=== PATIENT | male | born 1980 | race Caucasian/White ===

== ENCOUNTER → 2020-04-02 13:04 | Outpatient (BNVA) | payer OTHER, SELFPAY | PROVIDERS: PCP Internal Medicine; Visit Provider Physician Assistant | DX: S39.012A Strain of muscle, fascia and tendon of lower back, initial encounter (principal); X58.XXXA Exposure to other specified factors, initial encounter | CPT/HCPCS: 99202 ==

== ENCOUNTER → 2020-04-05 09:46 | Outpatient (BNVA) | payer OTHER, SELFPAY | PROVIDERS: PCP Internal Medicine; Visit Provider Physician Assistant Medical | DX: S39.012A Strain of muscle, fascia and tendon of lower back, initial encounter (principal); X58.XXXA Exposure to other specified factors, initial encounter | CPT/HCPCS: 99213 ==

== ENCOUNTER → 2020-04-16 10:31 | Outpatient (BNVA) | payer OTHER, SELFPAY | PROVIDERS: PCP Internal Medicine; Visit Provider Physician Assistant | DX: S39.012A Strain of muscle, fascia and tendon of lower back, initial encounter (principal); X58.XXXA Exposure to other specified factors, initial encounter | CPT/HCPCS: 99213 ==

== ENCOUNTER 2020-04-25 16:00 | Outpatient (RCR) | payer OTHER, SELFPAY ==
--- NOTE | 2020-04-10 12:07 | MHC.PT.EP ---
[facility] [place] Office [place] Office [place] Office [address] Debbie Ho [address] [phone] F: [phone] F: [phone] F: [phone] F: [phone] Physical Therapy Plan of Care Date of Evaluation: 04/10/20 Diagnosis: acute lumbar strain Assessment: 40 y/o male referred to PT for acute lumbar strain from work [employer]. He injured himself at work 03/31/2020 when lifting a box ~25#. He felt instant L-sided back pain and was unable to fully stand erect. He stopped working that day and went to work connection Thursday. He was given stretches from [employer] and given Ibuprofen and a muscle relaxer. His pain is gradually improving. He is OOW. Initially he was unable to walk/stand/sit/bend/squat without pain, but now he is able to perform ADL's with less pain, however still limited with forward flexion and feels stiff after prolonded static positions. Examination shows decreased lumbar AROM, decreased glut max strength, increased pain and muscle spasm, and impaired postural awareness. S/s consistent with lumbar derangement with extension-based directional preference. He responded to REIL and educated pt on spine mechanics, body mechanics, posture with lumbar roll, and HEP. Recommend PT 2x/week for 3 weeks to address impairments, implement HEP, and optimize functional mobility. Frequency and Duration: The patient will be seen 2x/week for 3 weeks Short Term Goals: 2 weeks: 1. I with HEP 2. Demonstrate centralization of all sx Shelter Goals: 3 weeks: 1. Improve lumbar extension and flexion to 100% 2. Pt will be able to don/doff shoes with pain < 3/10 3. Pt will be able to lift 25# from floor to waist with pain < 2/10 Treatment Plan: Modalities to reduce pain, spasms and effusion. Manual therapy to restore motion and function. Therapeutic exercise to improve strength and flexibility. Neuromuscular re-education for posture and balance. Therapeutic activities to return to functional activities of daily living. Please sign and return to therapist. Thank you for your referral.
--- NOTE | 2020-06-04 08:26 | MHC.PT.DC ---
[facility] [place] Office [place] Office [place] Office [address] Debbie Ho [address] [phone] F: [phone] F: [phone] F: [phone] F: [phone] Physical Therapy Discharge Report Diagnosis: acute lumbar strain Date of Surgery: Date of Evaluation: 04/10/20 Date of Discharge: 06/04/20 Treatments to Date: 4 Cancellations to Date: 0 No Shows to Date: 0 Discharge Status: Improved Function Independent with HEP Visit Non-compliance Discharge Summary: Pt did not follow with further visits therefore d/c. At time of last attended session, Pt is making good progress and demonstrates full lumbar extension and is now able to don/doff shoes without pain. Added overpressure to REIL and pt reports less pain with overpressure. Cues to perform extension exercises to end-range. Initiated flexion-based exercises to return to flexion and will initiate work simulation next visit if he continues to be painfree. He has a f/u with work connection on Thursday. Electronically signed by: Martha Combs PT DPT Please sign and return to therapist. Thank you for your referral.
== END 2020-06-04 08:27 | disposition other institution (70) ==
LOC: HO.PT 16:00
PROVIDERS: PCP Internal Medicine; Visit Provider Physician Assistant Medical
DX: S39.012D Strain of muscle, fascia and tendon of lower back, subsequent encounter (principal)
CPT/HCPCS: 97110; 97140; 97161

== ENCOUNTER → 2020-04-27 16:03 | Outpatient (BNVA) | payer OTHER, SELFPAY | PROVIDERS: PCP Internal Medicine; Visit Provider Physician Assistant Medical | DX: S39.012D Strain of muscle, fascia and tendon of lower back, subsequent encounter (principal); X58.XXXD Exposure to other specified factors, subsequent encounter | CPT/HCPCS: 99213 ==

== ENCOUNTER → 2020-05-11 15:24 | Outpatient (BNVA) | payer OTHER, SELFPAY | PROVIDERS: PCP Internal Medicine; Visit Provider Physician Assistant Medical | DX: S39.012D Strain of muscle, fascia and tendon of lower back, subsequent encounter (principal); X58.XXXD Exposure to other specified factors, subsequent encounter; M54.16 Radiculopathy, lumbar region | CPT/HCPCS: 99213 ==

== ENCOUNTER → 2020-05-24 09:28 | Outpatient (BNVA) | payer OTHER, SELFPAY | PROVIDERS: PCP Internal Medicine; Visit Provider Physician Assistant Medical | DX: S39.012D Strain of muscle, fascia and tendon of lower back, subsequent encounter (principal); X58.XXXD Exposure to other specified factors, subsequent encounter; M54.16 Radiculopathy, lumbar region; M46.1 Sacroiliitis, not elsewhere classified | CPT/HCPCS: 99213 ==

== ENCOUNTER → 2020-06-06 10:17 | Outpatient (BNVA) | payer OTHER, SELFPAY | PROVIDERS: PCP Internal Medicine; Visit Provider Physician Assistant Medical | DX: S39.012D Strain of muscle, fascia and tendon of lower back, subsequent encounter (principal); X58.XXXD Exposure to other specified factors, subsequent encounter; M54.10 Radiculopathy, site unspecified | CPT/HCPCS: 99213 ==

== ENCOUNTER 2020-06-11 08:40 | Outpatient (REF) | payer OTHER, SELFPAY ==
--- NOTE | 2020-06-11 | MR_ITS ---
EXAMINATION: MR LUMBAR SPINE WITHOUT CONTRAST CLINICAL INFORMATION: Persistent left radicular symptoms with weakness and bilateral extremity weakness, lifting injury. COMPARISON: None TECHNIQUE: MRI of the lumbar spine was obtained using routine sequences without contrast. FINDINGS: There is normal lumbar lordosis. The vertebral heights are normal. There is grade 1 anterolisthesis, L5 over S1. The rest of the alignment is preserved. There is mild loss of L5-S1 disc height with minimal disc desiccation changes. The rest of the disc heights and disc signal are normal. SPINAL LEVELS: The T12-L1, L1-L2 and L2-L3 disc levels are unremarkable. At L3-L4 disc level, there is a central disc bulge indenting the ventral thecal sac resulting in mild AP canal stenosis. The neural foramina are patent bilaterally. At L4-L5 disc level, there is minimal bulge with mild AP canal stenosis. The neural foramina are patent bilaterally. At L5-S1 disc level, there is diffuse bulge eccentric to the left narrowing the left L5 nerve root within the neural foramina and best visualized on axial image 23/6. There an endplate Schmorl's node at L5-S1 disc level. The rest of the bone marrow signal is normal. Conus medullaris terminates at T12-L1 disc level and appears normal in morphology. The paravertebral soft tissues are normal. MR/MR lumbar spine wo con IMPRESSION: 1. Mild central disc bulge L3-L4 and L4-L5 disc levels with mild AP canal stenosis. 2. There is a broad-based diffuse bulge eccentric laterally to the left at L5-S1 disc level moderately narrowing the left neural foramina and mildly flattening the L5 nerve root within the neural foramina.
== END 2020-06-11 08:41 | disposition home or self-care (01) ==
LOC: HO.MRI 08:40
PROVIDERS: Visit Provider Internal Medicine
DX: R53.1 Weakness (principal); M54.16 Radiculopathy, lumbar region
CPT/HCPCS: 72148

== ENCOUNTER → 2020-06-13 10:51 | Outpatient (BNVA) | payer OTHER, SELFPAY | PROVIDERS: PCP Internal Medicine; Visit Provider Physician Assistant Medical | DX: M99.53 Intervertebral disc stenosis of neural canal of lumbar region (principal); G54.4 Lumbosacral root disorders, not elsewhere classified | CPT/HCPCS: 99213 ==

== ENCOUNTER 2020-11-01 20:49 | Inpatient (IN) | payer MEDICAID, SELFPAY ==
--- NOTE | ~2020-11-01 | CT_ITS ---
EXAMINATION: CT ANGIOGRAM OF THE CHEST WITH AND WITHOUT CONTRAST (CT PULMONARY ANGIOGRAM FOR PE) CLINICAL INFORMATION: Reason for Exam hypoxic, elevated dimer COMPARISON: Chest radiograph earlier this evening TECHNIQUE: Prior to contrast administration, noncontrast localization images were obtained. Subsequently, multidetector volumetric imaging was performed from the thoracic inlet to below the diaphragms following the administration of 65 mL Omnipaque 350 intravenous contrast. No contrast reaction reported Sagittal, coronal, and MIP oblique sagittal reformatted images were obtained on the CT workstation, uploaded to PACS, and reviewed. This CT examination was performed using dose optimization techniques as appropriate, variously including the following: *Automated exposure control *Adjustment of mA and/or kV according to patient size (this includes techniques or standardized protocols for targeted exams where dose is matched to indication/reason for exam; i.e. extremities or head) *Use of iterative reconstruction technique Total exam dose-length product 301 mGy-cm FINDINGS: QUALITY OF STUDY/CONTRAST BOLUS: Satisfactory. PULMONARY ARTERIES: No central or segmental pulmonary emboli. THORACIC AORTA: No aneurysm or dissection. LUNG: Some subtle groundglass infiltrates are seen predominantly in a peribronchial distribution. There is some tree-in-bud formation seen at the right lung base along with some more focal small rounded areas of consolidation. At the left lung base, a large area dense consolidation is present. This appears to have increased significantly when compared to the chest radiograph earlier this evening. PLEURA: No pleural effusion or pneumothorax. MEDIASTINUM: Normal heart size. No pericardial effusion. No hilar or mediastinal lymphadenopathy. No evidence of septal bowing or right heart strain. CHEST WALL/AXILLA: No axillary or internal mammary lymphadenopathy. OSSEOUS STRUCTURES: No acute or suspicious osseous abnormality. UPPER ABDOMEN: Cholelithiasis is present. No reflux of contrast into the hepatic veins to suggest elevated right heart pressures. CT/CT angio chest PE protocol IMPRESSION: 1. No evidence of pulmonary emboli 2. Bronchopneumonia with large area of consolidation left lower lobe with smaller areas of peribronchial infiltrate elsewhere as described above. This appears to have increased significantly since the chest radiograph performed earlier in the evening. 3. Incidentally noted cholelithiasis VTE: negative
--- NOTE | ~2020-11-01 | XR_ITS ---
EXAMINATION: XR CHEST CLINICAL INFORMATION: Hypoxia COMPARISON: None TECHNIQUE: Frontal view of the chest was obtained. FINDINGS: The lungs are hypoexpanded with patchy opacity seen in the left lung base and/or lingular suspicious for infiltrate and/or atelectasis. Rest of lungs are clear expanded. The heart size and pulmonary vascularity is normal. No gross bony abnormality seen. XR/XR chest 1V IMPRESSION: Suspect lingular and/or left lung base atelectasis..
[2020-11-01 20:56] VITALS: BMI 26.6
[2020-11-01 21:00] VITALS: BP 118/80; PULSE 115; RESP 16; TEMP 37.1; O2SAT 92
--- NOTE | 2020-11-01 21:47 | ECG_ITS ---
Test Reason : OVEDOSE Blood Pressure : / mmHG Vent. Rate : 119 BPM Atrial Rate : 119 BPM P-R Int : 148 ms QRS Dur : 082 ms QT Int : 316 ms P-R-T Axes : 067 024 025 degrees QTc Int : 444 ms Sinus tachycardia Otherwise normal ECG No previous ECGs available Referred By: Maria Antonia Garcia Electronically Signed By:JUANITA GALARZA MD
--- NOTE | 2020-11-01 21:50 | ED.OVERDOSE ---
HPI - Overdose General Chief Complaint: Overdose Stated Complaint: OD Time Seen by Provider: 11/01/20 21:47 Source: patient and EMS Mode of arrival: EMS Limitations: no limitations History of Present Illness HPI Narrative: Patient comes to emergency room after being found unresponsive by family. Patient overdosed on heroin. Patient states that he had not been using heroin for several weeks, and relapse today, went back to using his regular dose. Patient states it was an accident, denies suicidal or homicidal ideation. Family/EMS gave the patient 8 mg of intranasal Narcan, patient immediately woke up. However, although patient was awake, his oxygen saturation was 85% on room air. Patient placed on a non-rebreather and brought to the emergency room. MD complaint: accidental overdose Related Data Allergies Allergy/AdvReac Type Severity Reaction Status Date / Time No Known Allergies Allergy Unverified 02/09/20 15:36 [No Known Allergies*] Review of Systems Review of Systems: Constitutional : No Weight loss, No Fever, No Chills, No Night Sweats, No Fatigue, No Malaise ENT/Mouth : No Hearing loss, No Ear Pain, No Nasal Congestion, No Sinus Pain, No Hoarseness, No sore throat, No Rhinorrhea, No Swallowing Difficulty Eyes: No Eye Pain, No Swelling, No Redness, No Foreign Body, No Discharge, No Vision Changes Cardiovascular : No Chest Pain, No SOB, No Dyspnea on Exertion, No Orthopnea, No Edema, No Palpitations Respiratory : No Cough, No Sputum, No Wheezing, No Smoke Exposure, No Dyspnea Gastrointestinal : No Nausea, No Vomiting, No Diarrhea, No Constipation, No abdominal Pain, No Hematochezia, No Melena Genitourinary : no irregular bleeding, No Dysuria, No Urinary Frequency, No Hematuria, No Urinary Incontinence, No Urgency, No Flank Pain, No Urinary Flow Changes, No Hesitancy Musculoskeletal : No joint pain, No Myalgias, No Joint Swelling Skin : No Skin Lesions, No rash Neuro : No Weakness, No Numbness, No Paresthesias, No Loss of Consciousness, No Dizziness, No Headache Psych : No Anxiety/Panic, No Depression, No SI/HI/AH/VH, No Social Issues, Heme/Lymph: No Bruising, No Bleeding,No Lymphadenopathy Endocrine : No Polyuria, No Polydipsia, No Temperature Intolerance [facility] Past Medical History Medical History (Updated 11/02/20 @ 02:37 by Maria Antonia Garcia MD) Substance abuse Social History Social History Advance Directives: No Advance Directives Information Provided: Yes Physical Exam Vital Signs: Vital Signs: Last Vital Signs Temp 98.8 F 11/01/20 21:00 Pulse 115 H 11/01/20 21:00 Resp 16 11/01/20 21:00 BP 118/80 11/01/20 21:00 Pulse Ox 92 11/01/20 21:00 Body Mass Index 26.6 Appearance: Alert. Oriented X3. No acute distress. Eyes: Pupils equal, round and reactive to light. ENT: Pharynx normal. Neck: Normal inspection. Neck supple. No lymph nodes noted. No crepitus CVS: Normal heart rate and rhythm. Pulses normal. Normal S1 and S2 Respiratory: No respiratory distress. Breath sounds normal. No Wheezing. No rales , fully awake, oxygen saturation 86% on room air Abdomen: Soft and nontender. No rigidity. No distention. good BS x4 Skin: Skin warm and dry. Normal skin color. Normal skin turgor. Extremities: No lower extremity edema. No lower extremity edema. No Lacerations. No Rash Neuro: Oriented X 3. No motor deficit. No sensory deficit. Moving all extermities. No slurred speech. Course Course Course Narrative: Patient is fully awake, does not have any respiratory distress. His oxygen saturation is 85-86% on room air, patient requiring 6 L of oxygen to keep an O2 of 94% Patient's D-dimer elevated. At this time, I also discussed with the patient that his blood glucose is 500. Patient states that he has never been told that he is diabetic. I discussed the labs imaging with the patient, he states the overdose, patient is new onset diabetic, has acute kidney injury and significant pneumonia. Patient initially wanted to leave against medical advice. After advised the patient to stay, patient grudgingly accepted to stay MDM - Overdose Lab Data Result diagrams: 11/01/20 22:12 11/01/20 22:12 Labs: Lab Results 11/01/20 11/01/20 11/01/20 Range/Units 22:12 22:12 22:12 WBC 12.1 H (4.8-10.8) X10*3/uL RBC 5.28 (4.60-5.80) X10*6/uL Hgb 15.1 (14.0-18.0) g/dl Hct 43.0 (42-52) % MCV 81.4 (80-98) fL MCH 28.6 (27.0-33.0) pg MCHC 35.1 (31.0-36.0) g/dl RDW 11.8 (11.0-16.0) % Plt Count 258 (160-400) X10*3/uL MPV 9.6 (9.4-12.4) fL Immature Gran % (Auto) 0.6 H (0.0-0.4) % Neut % (Auto) 86.2 H (45-73) % Lymph % (Auto) 5.9 L (20-40) % Armstrong % (Auto) 7.0 (2-11) % Eos % (Auto) 0.1 (0-4) % Baso % (Auto) 0.2 (0-2) % Lymph # (Auto) 0.7 L (1.2-4.9) X10*3/uL Armstrong # (Auto) 0.8 (0.1-1.2) X10*3/uL Eos # (Auto) 0.0 (0.0-0.4) X10*3/uL Baso # (Auto) 0.0 (0.0-0.2) X10*3/uL Abs Immat Gran (auto) 0.07 H (0.00-0.03) X10*3/uL Absolute Neuts (auto) 10.4 H (2.0-8.3) X10*3/uL Absolute Nucleated RBC 0.000 (0.0-0.012) X10*3/uL Nucleated RBC % (auto) 0.0 (0.0-0.2) /100WBC D-Dimer 1672 NG/ML Sodium 132 L (135-145) mmol/L Potassium 4.6 (3.3-5.1) mmol/L Chloride 95 L (96-108) mmol/L Carbon Dioxide 29 (22-29) mmol/L Anion Gap 13 (12-20) BUN 20 H (9-16) mg/dL Creatinine 1.48 H (0.5-1.4) mg/dL Estim Creat Clear Calc 67.6 Estimated GFR 53 POC Glucose (60-115) mg/dL Random Glucose 500 H* (60-115) mg/dL Calcium 9.1 (8.4-10.2) mg/dL B-Natriuretic Peptide (<100) pg/mL Acetone, Qual Small H (Negative) 11/01/20 11/01/20 Range/Units 22:12 23:50 WBC (4.8-10.8) X10*3/uL RBC (4.60-5.80) X10*6/uL Hgb (14.0-18.0) g/dl Hct (42-52) % MCV (80-98) fL MCH (27.0-33.0) pg MCHC (31.0-36.0) g/dl RDW (11.0-16.0) % Plt Count (160-400) X10*3/uL MPV (9.4-12.4) fL Immature Gran % (Auto) (0.0-0.4) % Neut % (Auto) (45-73) % Lymph % (Auto) (20-40) % Armstrong % (Auto) (2-11) % Eos % (Auto) (0-4) % Baso % (Auto) (0-2) % Lymph # (Auto) (1.2-4.9) X10*3/uL Armstrong # (Auto) (0.1-1.2) X10*3/uL Eos # (Auto) (0.0-0.4) X10*3/uL Baso # (Auto) (0.0-0.2) X10*3/uL Abs Immat Gran (auto) (0.00-0.03) X10*3/uL Absolute Neuts (auto) (2.0-8.3) X10*3/uL Absolute Nucleated RBC (0.0-0.012) X10*3/uL Nucleated RBC % (auto) (0.0-0.2) /100WBC D-Dimer NG/ML Sodium (135-145) mmol/L Potassium (3.3-5.1) mmol/L Chloride (96-108) mmol/L Carbon Dioxide (22-29) mmol/L Anion Gap (12-20) BUN (9-16) mg/dL Creatinine (0.5-1.4) mg/dL Estim Creat Clear Calc Estimated GFR POC Glucose 325 H (60-115) mg/dL Random Glucose (60-115) mg/dL Calcium (8.4-10.2) mg/dL B-Natriuretic Peptide 13 (<100) pg/mL Acetone, Qual (Negative) Imaging Data CT for PE: Radiologist's impression: QUALITY OF STUDY/CONTRAST BOLUS: Satisfactory. PULMONARY ARTERIES: No central or segmental pulmonary emboli. THORACIC AORTA: No aneurysm or dissection. LUNG: Some subtle groundglass infiltrates are seen predominantly in a peribronchial distribution. There is some tree-in-bud formation seen at the right lung base along with some more focal small rounded areas of consolidation. At the left lung base, a large area dense consolidation is present. This appears to have increased significantly when compared to the chest radiograph earlier this evening. PLEURA: No pleural effusion or pneumothorax. MEDIASTINUM: Normal heart size. No pericardial effusion. No hilar or mediastinal lymphadenopathy. No evidence of septal bowing or right heart strain. CHEST WALL/AXILLA: No axillary or internal mammary lymphadenopathy. OSSEOUS STRUCTURES: No acute or suspicious osseous abnormality. UPPER ABDOMEN: Cholelithiasis is present. No reflux of contrast into the hepatic veins to suggest elevated right heart pressures. CT/CT angio chest PE protocol IMPRESSION: 1. No evidence of pulmonary emboli 2. Bronchopneumonia with large area of consolidation left lower lobe with smaller areas of peribronchial infiltrate elsewhere as described above. This appears to have increased significantly since the chest radiograph performed earlier in the evening. 3. Incidentally noted cholelithiasis VTE: negative ECG Data Attestation: I personally reviewed and interpreted this ECG as follows: (Sinus tachycardia, heart rate 119, no ST segment depression or elevation, no to inversion, QTC 444) Critical Care Time Critical Care Time Total Critical Care Time: 60 Discharge Plan Discharge Clinical Impression: Drug overdose, Diabetes mellitus, new onset, Acute kidney injury, Pneumonia, Hypoxia Patient Disposition: Admitted As Inpatient
[2020-11-01 22:18] LABS: MANUAL DIFF FLAG NO
[2020-11-01 22:19] LABS: Basophils Percent Auto 0.2 % (0-2); Eosinophils Percent Auto 0.1 % (0-4); Hemoglobin 15.1 g/dl (14.0-18.0); Imm Gran Abs Auto 0.07 X10*3/uL (0.00-0.03); Imm Gran Pct Auto 0.6 % (0.0-0.4); Lymphocytes Absolute Auto 0.7 X10*3/uL (1.2-4.9); Lymphocytes Percent Auto 5.9 % (20-40); Mean Corpuscular HGB Conc 35.1 g/dl (31.0-36.0); Mean Corpuscular Hemoglobin 28.6 pg (27.0-33.0); Mean Corpuscular Volume 81.4 fL (80-98); Mean Platelet Volume 9.6 fL (9.4-12.4); Monocytes Absolute Auto 0.8 X10*3/uL (0.1-1.2); Neutrophils Absolute Auto 10.4 X10*3/uL (2.0-8.3); Neutrophils Percent Auto 86.2 % (45-73); Platelet Count 258 X10*3/uL (160-400); Red Blood Count 5.28 X10*6/uL (4.60-5.80); Red Cell Distribution Width 11.8 % (11.0-16.0); White Blood Count 12.1 X10*3/uL (4.8-10.8)
[2020-11-01 22:39] LABS: D Dimer 1672 NG/ML
[2020-11-01 22:57] LABS: B Type Natriuretic Peptide 13 pg/mL (<100)
[2020-11-01 22:59] LABS: Anion Gap 13 (12-20); Blood Urea Nitrogen 20 mg/dL (9-16); Calcium 9.1 mg/dL (8.4-10.2); Carbon Dioxide 29 mmol/L (22-29); Chloride 95 mmol/L (96-108); Creatinine Clr Calc Pharmacy 67.6; Estimated Glomerular Filt Rate 53; Glucose Random 500 mg/dL (60-115); Potassium 4.6 mmol/L (3.3-5.1); Sodium 132 mmol/L (135-145)
[2020-11-01 23:53] LABS: Glucose, Whole Blood 325 mg/dL (60-115)
[2020-11-02 00:18] LABS: Acetone, serum QL Small (Negative)
[2020-11-02] MEDS: iohexoL 350 MG/ML 100 ML INFUS..BTL 65 ML IV (00:23)
[2020-11-02] MEDS: Insulin Regular, Human 100 UNIT/ML 3 ML VIAL 10 UNIT IVPUSH (00:35)
[2020-11-02] MEDS: 0.9 % Sodium Chloride 1,000 ML 999 ML IVCONT ×2 (00:35→04:04)
[2020-11-02 03:17] LABS: Glucose, Whole Blood 301 mg/dL (60-115)
--- NOTE | 2020-11-02 03:21 | P.HPHOSP_ITS ---
History of Present Illness Date of Service: 11/02/20 Chief Complaint: Breif Unresponsive episode 40-year-old male with a past medical history of substance abuse presented to the hospital with a chief complaint of brief unresponsive episode. Patient was found by his family members unresponsive subsequently EMS was called in and brought into the ER for further evaluation. The patient currently denies any chest pain palpitations lightheadedness dizziness. Denies any cough or sputum production. Patient mentioned that he uses illicit drugs, denies IV drug abuse, usually snorts. Denies any back pain. Denies any GI or symptoms. Review of all other systems is negative except mentioned above ER course: Per ER team patient had Narcan given by the EMS with improvement in his mental status. Patient was noted to be mildly hypoxic, CT angio chest showed no evidence of pulmonary embolism but noted left lower lobe pneumonia. Given levofloxacin. Also on the blood work noted to have mild PHILOMENA and elevated blood glucose considering the possible new onset diabetes. IV push. Admitted to the hospital for further management. [facility] Medical History (Updated 11/02/20 @ 02:37 by Maria Antonia Garcia MD) Substance abuse Social History Household Members: Family Housing: House Do you presently have visiting nurse or other home services: No Patient Tobacco Use Status: Current everyday Tobacco user Tobacco use type: Cigarette Cigarettes Per Day: 10 Years Smoked: 10 Smoked in Last 30 Days: Yes Patient Interested in Nicotine Replacement: No (not at this time per patient) Patient Given Instructions on How to Stop Smoking: No (not interested at this t nissa) Second Hand Smoke Exposure: Yes Use of substances other than those prescribed or required for medical reasons: Yes Substance Use Type: Heroin Substance Use Frequency: Occasionally Last Used Substance: Just Prior to Admission Currently Displaying Signs/Symptoms of Drug Intoxication Withdrawal: No Any prior treatment program specific to substance use: Yes Have you been hit, kicked, punched, or otherwise hurt by someone within the past year? If so, by whom?: No Do you feel safe in your current relationship?: Yes Is there a partner from a previous relationship who is making you feel unsafe now?: No Are you made to feel afraid or neglected: No Spiritual Healthcare Practices: nothing per patient Confucianist Healthcare Practices: none Cultural Healthcare Practices: none Advance Directives: No Advance Directives Information Provided: Yes Do you have thoughts of harming others: None Do you have a plan to hurt others: No Plan Recently lost weight without trying: No Nutrition Risks: No Nutritional Risk Poor oral hygiene: No service: No Current occupational status: unemployed Meds Allergies Allergy/AdvReac Type Severity Reaction Status Date / Time No Known Allergies Allergy Verified 11/02/20 13:05 [No Known Allergies*] Active Medications: Current Medications Generic Name Dose Route Start Last Admin Trade Name Freq PRN Reason Stop Dose Admin Acetaminophen 650 mg 11/02/20 03:15 Acetaminophen 325 Mg Tablet PO Q6H PRN Pain, Mild (Pain Scale 1-3) Albuterol/Ipratropium 3 ml 11/02/20 03:14 Albuterol/Iprat 2.5/0.5mg 3 Ml Ampul.Neb INHALE RQ4H PRN Shortness of Breath/Wheezing Benzonatate 100 mg 11/02/20 03:14 Benzonatate 100 Mg Capsule PO TID PRN Cough Enoxaparin Sodium 40 mg 11/02/20 03:15 Enoxaparin Sodium 40 Mg/0.4 Ml Syringe SUBCUT Q24H [facility] Sodium Chloride 1,000 mls @ 100 mls/hr 11/02/20 03:15 Ns IVCONT .Q10H [facility] Insulin Glargine 10 unit 11/02/20 21:00 Insulin Glargine,Hum.Rec.Anlog 100 Unit/Ml 10 Ml Vial SUBCUT BEDTIME [facility] Insulin Human Lispro 0 unit 11/02/20 07:30 Insulin Lispro 100 Unit/Ml 3 Ml Vial SUBCUT QIDACHS [facility] Protocol Insulin Human Lispro 0 unit 11/02/20 07:30 Insulin Lispro 100 Unit/Ml 3 Ml Vial SUBCUT QIDAS [facility] Protocol Levofloxacin 750 mg 11/02/20 03:15 Levofloxacin 750 Mg Tablet PO Q24H [facility] Senna 17.2 mg 11/02/20 03:15 Sennosides 8.6 Mg Tablet PO BEDTIME PRN Constipation Sodium Chloride 3 ml 11/02/20 08:00 0.9 % Sodium Chloride Flush 3 Ml Syringe IVFLUSH QSHIFT [facility] Physical Exam Vital Signs and Narrative: Vital Signs: Last Vital Signs Temp 98.8 F 11/01/20 21:00 Pulse 115 H 11/01/20 21:00 Resp 16 11/01/20 21:00 BP 118/80 11/01/20 21:00 Pulse Ox 92 11/01/20 21:00 Body Mass Index 26.6 Gen: Appears be in no acute distress HEENT: NCAT, Moist mucosa. Pulmonary: Course breath sounds, fair air entry CVS: Normal S1-S2 Abdomen: BS+, Soft, Nontender Extremities: Warm well perfused Neuro: Alert and awake. Oriented x3. Grossly nonfocal exam. Results Labs CBC and Chem 7: 11/04/20 08:18 11/04/20 08:18 Labs: Laboratory Results - last 24 hr 11/01/20 11/01/20 11/01/20 22:12 22:12 22:12 MCV 81.4 MCH 28.6 MCHC 35.1 RDW 11.8 Plt Count 258 MPV 9.6 Immature Gran % (Auto) 0.6 H Neut % (Auto) 86.2 H Lymph % (Auto) 5.9 L Wirt % (Auto) 7.0 Eos % (Auto) 0.1 Baso % (Auto) 0.2 Lymph # (Auto) 0.7 L Wirt # (Auto) 0.8 Eos # (Auto) 0.0 Baso # (Auto) 0.0 Abs Immat Gran (auto) 0.07 H Absolute Neuts (auto) 10.4 H Absolute Nucleated RBC 0.000 Nucleated RBC % (auto) 0.0 D-Dimer 1672 Anion Gap 13 Estim Creat Clear Calc 67.6 Estimated GFR 53 POC Glucose Random Glucose 500 H* Calcium 9.1 B-Natriuretic Peptide Acetone, Qual Small H 11/01/20 11/01/20 11/02/20 22:12 23:50 03:14 MCV MCH MCHC RDW Plt Count MPV Immature Gran % (Auto) Neut % (Auto) Lymph % (Auto) Wirt % (Auto) Eos % (Auto) Baso % (Auto) Lymph # (Auto) Wirt # (Auto) Eos # (Auto) Baso # (Auto) Abs Immat Gran (auto) Absolute Neuts (auto) Absolute Nucleated RBC Nucleated RBC % (auto) D-Dimer Anion Gap Estim Creat Clear Calc Estimated GFR POC Glucose 325 H 301 H Random Glucose Calcium B-Natriuretic Peptide 13 Acetone, Qual Imaging Radiologist's Impressions: Impressions Chest X-Ray 11/01/20 21:48 IMPRESSION: Suspect lingular and/or left lung base atelectasis.. Chest CTA 11/02/20 00:02 IMPRESSION: 1. No evidence of pulmonary emboli 2. Bronchopneumonia with large area of consolidation left lower lobe with smaller areas of peribronchial infiltrate elsewhere as described above. This appears to have increased significantly since the chest radiograph performed earlier in the evening. 3. Incidentally noted cholelithiasis VTE: negative Assessment and Plan (1) Drug overdose: Status: Acute 40-year-old male with a past medical history of substance abuse presented to the hospital after a brief unresponsive episode at home. Brief unresponsive episode: In the setting of drug overdose. Improved after Narcan. Currently mentating well. Supportive care. Substance abuse: Consulted Addiction Medicine for further input. Left lower lobe pneumonia: Continue levofloxacin. COVID-19 pending. Mathew Eastman p.r.n.. [place] p.r.n.. Supplemental oxygen p.r.n.. CT scan showed no evidence of pulmonary embolism. Cholelithiasis: Recommended outpatient follow-up with General surgery. Currently denies any abdominal complaints. New onset diabetes: Patient fingerstick glucose was in 500s. Given regular insulin IV push in the ER. Improving. Will keep the patient on Lantus plus insulin sliding scale. Will obtain hemoglobin A1c. PHILOMENA: Likely prerenal. Avoid nephrotoxins. Gentle IV fluids. DVT prophylaxis: Lovenox Code status: Full code
[2020-11-02] MEDS: 0.9 % Sodium Chloride 1,000 ML 100 ML IVCONT ×2 (04:04→14:00)
[2020-11-02 04:11] VITALS: BP 113/54; PULSE 99; RESP 14; TEMP 37.8; O2SAT 95
[2020-11-02] MEDS: levoFLOXacin 500 MG TABLET PO (04:26)
[2020-11-02] MEDS: Enoxaparin Sodium 40 MG/0.4 ML SYRINGE SUBCUT (04:26)
[2020-11-02 04:27] LABS: MANUAL DIFF FLAG NO
[2020-11-02] MEDS: Acetaminophen 325 MG TABLET 650 MG PO (04:28)
[2020-11-02 04:29] LABS: Basophils Percent Auto 0.1 % (0-2); Eosinophils Percent Auto 0.2 % (0-4); Hematocrit 39.7 % (42-52); Hemoglobin 13.9 g/dl (14.0-18.0); Imm Gran Abs Auto 0.04 X10*3/uL (0.00-0.03); Imm Gran Pct Auto 0.4 % (0.0-0.4); Lymphocytes Absolute Auto 1.5 X10*3/uL (1.2-4.9); Lymphocytes Percent Auto 13.5 % (20-40); Mean Corpuscular Hemoglobin 28.7 pg (27.0-33.0); Mean Platelet Volume 9.5 fL (9.4-12.4); Monocytes Absolute Auto 0.7 X10*3/uL (0.1-1.2); Monocytes Percent Auto 6.4 % (2-11); Neutrophils Absolute Auto 8.8 X10*3/uL (2.0-8.3); Neutrophils Percent Auto 79.4 % (45-73); Platelet Count 200 X10*3/uL (160-400); Red Blood Count 4.84 X10*6/uL (4.60-5.80); Red Cell Distribution Width 11.9 % (11.0-16.0)
--- NOTE | 2020-11-02 04:32 | PC.NURSE ---
Phleb at bedside prior to this coal pipeline operator, shane blood. This RN believed phleb collected all labs including blood cultures as ordered. This RN was verifying chart to ensure no additional orders were needed before leaving bedside and saw that cultures were not received in lab. Phleb still in dept. This RN asked phleb if she had drawn cultures, states she did not see any orders for cultures. This RN amended BC x 2 in worklist to attempt to allow phleb to see order. Phleb to draw cultures at this time.
[2020-11-02 04:39] LABS: COVID-19 Test Negative (Negative)
[2020-11-02 04:57] LABS: Lactic Acid 0.9 mmol/L (0.5-2.0)
[2020-11-02 05:03] LABS: Anion Gap 10 (12-20); Blood Urea Nitrogen 15 mg/dL (9-16); Calcium 8.2 mg/dL (8.4-10.2); Carbon Dioxide 27 mmol/L (22-29); Chloride 101 mmol/L (96-108); Creatinine Clr Calc Pharmacy 103.2; Estimated Glomerular Filt Rate > 60; Glucose Random 281 mg/dL (60-115); Potassium 3.7 mmol/L (3.3-5.1); Sodium 134 mmol/L (135-145)
[2020-11-02 08:15] LABS: Glucose, Whole Blood 226 mg/dL (60-115)
[2020-11-02 08:23] LABS: Estimated Average Glucose 292 mg/dL; Hemoglobin A1c % 11.8 %
--- NOTE | 2020-11-02 09:51 | MHC.RECOVSUP ---
Recovery Support note: Patient is a 40 year old Iraqi speaking male who presented [place] [facility] due to an accidental heroin overdose. Patient is currently in the ED awaiting a medical admission. This sign writer letterer or painter met with patient to discuss substance use and recovery supports. Patient had a cloth over his eyes and appeared to be sleeping however woke up when this sign writer letterer or painter said his name. Patient reports he is doing OK and is not interested at this time. 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 Patient reports he is not sure if he was unresponsive due to the heroin or his blood sugar. Patient reports he is ready to get back into recovery. Patient is open to this sign writer letterer or painter following up with him later on in his admission to further discuss recovery supports and treatment options.
[2020-11-02 13:03] VITALS: BP 129/73; PULSE 89; RESP 16; TEMP 36.3; O2SAT 97
[2020-11-02 13:08] VITALS: BMI 23.4
--- NOTE | 2020-11-02 13:26 | MHC.CM.PN ---
FRANCISCO CALLED [facility] ([phone]) AND WAS INFORMED THE PT IS CURRENTLY ACTIVE WITH [facility] FOR PRIMARY CARE HOWEVER HE HAS NOT BEEN SEEN FOR SOME TIME AND WILL BE DISCHARGED IF HE DOES NOT SEE HER PRIOR TO DECEMBER OF THIS YEAR. FRANCISCO ATTEMPTED TO MAKE AN APPOINTMENT FOR PT HOWEVER THEY DID NOT HAVE ANY AVAILABLE. PER [facility] ELECTRICIAN APPRENTICE, DR CANALES NURSE WILL CALL TO DISCUSS CONCERNS AND TRY TO SCHEDULE AN APPOINTMENT OTHERWISE PT SHOULD CALL THEM ON THURSDAY TO SCHEDULE SOMETHING IN DECEMBER THE SCHEDULE FOR THAT MONTH WILL BE OPEN THEN.
[2020-11-02 13:27] LABS: Glucose, Whole Blood 263 mg/dL (60-115)
[2020-11-02 14:05] VITALS: O2SAT 96
[2020-11-02 15:18] VITALS: BP 125/67; PULSE 84; RESP 20; TEMP 36.9; O2SAT 92
--- NOTE | 2020-11-02 16:07 | P.PNIM_ITS ---
Subjective Subjective Date of Service: 11/02/20 <DAVID Mancini - Last Filed: 11/02/20 16:21> 11/02/20 <Nikolas Wrigth MD - Last Filed: 11/02/20 17:29> Interval History: seen and examined this morning, follow up for heroin overdose, pneumonia and new onset diabetes denies shortness of breath or cough at this time. denies fever, chills <DAVID Mancini - Last Filed: 11/02/20 16:21> Review of Systems Review of Systems: Yes all other systems are reviewed and are negative <DAVID Mancini - Last Filed: 11/02/20 16:21> Constitutional Constitutional: Denies chills and Denies fever(s) <DAVID Mancini - Last Filed: 11/02/20 16:21> Cardiovascular Cardiovascular: Denies chest pain <DAVID Mancini Last Filed: 11/02/20 16:21> Respiratory Respiratory: Denies cough <DAVID Mancini - Last Filed: 11/02/20 16:21> Gastrointestinal Gastrointestinal: Denies abdominal pain <DAVID Mancini Last Filed: 11/02/20 16:21> Physical Exam Vital Signs: Vital Signs: Last Vital Signs Temp 98.4 F 11/02/20 15:18 Pulse 84 11/02/20 15:18 Resp 20 11/02/20 15:18 BP 125/67 11/02/20 15:18 Pulse Ox 92 11/02/20 15:18 Body Mass Index 23.4 <DAVID Mancini - Last Filed: 11/02/20 16:21> Const: General: comfortable, alert and awake <DAVID Mancini Last Filed: 11/02/20 16:21> Nutritional Appearance: well nourished <DAVID Mancini Last Filed: 11/02/20 16:21> Orientation/consciousness: patient oriented x3 <DAVID Mancini Last Filed: 11/02/20 16:21> HENMT: Head: Yes normocephalic and Yes atraumatic <DAVID Mancini - Last Filed: 11/02/20 16:21> Eyes: Sclerae: sclerae normal <DAVID Mancini - Last Filed: 11/02/20 16:21> Chest: Chest palpation & inspection: normal inspection of the chest <DAVID Long - Last Filed: 11/02/20 16:21> Resp: Effort & Inspection: normal respiratory effort and no respiratory distress <DAVID Mancini - Last Filed: 11/02/20 16:21> Auscultation: clear to auscultation bilaterally <DAVID Mancini - Last Filed: 11/02/20 16:21> Cardio: Rate: regular rate <DAVID Mancini - Last Filed: 11/02/20 16:21> Rhythm: regular rhythm <DAVID Mancini - Last Filed: 11/02/20 16:21> GI: Palpation (GI): Soft to palpation and nontender <DAVID Mancini - Last Filed: 11/02/20 16:21> Neuro: General: patient oriented x3 <DAVID Mancini - Last Filed: 11/02/20 16:21> Cranial nerves: Yes CN's II-XII intact bilaterally and Yes Bilaterally intact EOM present <DAVID Mancini - Last Filed: 11/02/20 16:21> Objective Data Current Medications Generic Name Dose Route Start Last Admin Trade Name Freq PRN Reason Stop Dose Admin Acetaminophen 650 mg 11/02/20 03:15 11/02/20 04:28 Acetaminophen 325 Mg Tablet PO 650 mg Q6H PRN Administration Pain, Mild (Pain Scale 1-3) Albuterol/Ipratropium 3 ml 11/02/20 03:14 Albuterol/Iprat 2.5/0.5mg 3 Ml Ampul.Neb INHALE RQ4H PRN Shortness of Breath/Wheezing Benzonatate 100 mg 11/02/20 03:14 Benzonatate 100 Mg Capsule PO TID PRN Cough Enoxaparin Sodium 40 mg 11/02/20 05:00 11/02/20 04:26 Enoxaparin Sodium 40 Mg/0.4 Ml Syringe SUBCUT 40 mg Q24H [facility] Administration Sodium Chloride 1,000 mls @ 100 mls/hr 11/02/20 03:15 11/02/20 14:00 Ns IVCONT 100 mls/hr .Q10H [facility] Administration Insulin Glargine 10 unit 11/02/20 21:00 Insulin Glargine,Hum.Rec.Anlog 100 Unit/Ml 10 Ml Vial SUBCUT BEDTIME [facility] Insulin Human Lispro 0 unit 11/02/20 07:30 11/02/20 14:48 Insulin Lispro 100 Unit/Ml 3 Ml Vial SUBCUT Not Given QIDACHS [facility] Protocol Levofloxacin 750 mg 11/03/20 06:00 Levofloxacin 750 Mg Tablet PO Q24H [facility] Senna 17.2 mg 11/02/20 03:15 Sennosides 8.6 Mg Tablet PO BEDTIME PRN Constipation Sodium Chloride 3 ml 11/02/20 08:00 11/02/20 14:48 0.9 % Sodium Chloride Flush 3 Ml Syringe IVFLUSH Not Given QSHIFT [facility] <DAVID Mancini - Last Filed: 11/02/20 16:21> Labs CBC & Chem 7: : 11/02/20 04:21 11/02/20 04:21 <DAVID Mancini - Last Filed: 11/02/20 16:21> Assessment and Plan (1) Drug overdose: Status: Acute <DAVID Mancini - Last Filed: 11/02/20 16:21> (2) Diabetes mellitus, new onset: Status: Acute <DAVID Mancini - Last Filed: 11/02/20 16:21> Assessment and Plan: I saw patient and discussed finding, plana and management with DAVID and I agree with above, except as otherwise stated <Nikolas Wright MD - Last Filed: 11/02/20 17:29> (3) Acute kidney injury: Status: Acute <DAVID Mancini - Last Filed: 11/02/20 16:21> (4) Pneumonia: Status: Acute <DAVID Mancini - Last Filed: 11/02/20 16:21> Assessment and Plan: This is a 40-year-old male with a past medical history of substance abuse presented to the hospital after heroin overdose found to have pneumonia and elevated blood sugar concerning for new onset diabetes Pneumonia In the setting of drug overdose/episode of unresponsiveness Did meet sepsis on arrival with wbc 12.1 and tachycardia. no severe features noted. LA wnl. low grade fever this am. covid negative -continue IV levaquin -continue supportive care, not currently requiring oxygen -blood cultures pending New onset diabetes: Random glucose 500s. HbA1c 11.8 -started on low dose Lantus, titrate as needed -continue SSI, POCs -diabetic education Substance abuse: no active withdrawal at this time; pt reports relapsing but was previously clean for a long time -Addiction Medicine consulted PHILOMENA Resolved with IVF Cholelithiasis: Seen incidentally on CTA. No abdominal complaints DVT prophylaxis: Lovenox Code status: Full code Attending: Dr. Wright <DAVID Mancini - Last Filed: 11/02/20 16:21>
[2020-11-02 16:11] LABS: Glucose, Whole Blood 280 mg/dL (60-115)
[2020-11-02] MEDS: Insulin Lispro 100 UNIT/ML 3 ML VIAL SUBCUT ×2 (16:17→20:58)
[2020-11-02 18:59] VITALS: BP 121/65; PULSE 115; RESP 20; TEMP 36.4; O2SAT 91
[2020-11-02 20:17] LABS: Glucose, Whole Blood 247 mg/dL (60-115)
[2020-11-02] MEDS: Insulin Glargine,Hum.rec.anlog 100 UNIT/ML 10 ML VIAL 10 UNIT SUBCUT (20:58)
[2020-11-02 23:31] VITALS: BP 125/60; PULSE 113; RESP 18; TEMP 36.8; O2SAT 92
[2020-11-02] MEDS: 0.9 % Sodium Chloride Flush 3 ML SYRINGE IVFLUSH (23:58)
[2020-11-03 03:38] VITALS: BP 132/79; PULSE 111; RESP 18; TEMP 37; O2SAT 90
[2020-11-03] MEDS: Enoxaparin Sodium 40 MG/0.4 ML SYRINGE SUBCUT (05:26)
[2020-11-03] MEDS: levoFLOXacin 750 MG TABLET PO (05:26)
[2020-11-03 07:01] LABS: Hemoglobin 14.1 g/dl (14.0-18.0); Mean Corpuscular HGB Conc 34.4 g/dl (31.0-36.0); Mean Corpuscular Hemoglobin 28.6 pg (27.0-33.0); Mean Corpuscular Volume 83.2 fL (80-98); Platelet Count 223 X10*3/uL (160-400); Red Blood Count 4.93 X10*6/uL (4.60-5.80); Red Cell Distribution Width 12.1 % (11.0-16.0); White Blood Count 14.6 X10*3/uL (4.8-10.8)
[2020-11-03 07:17] LABS: Glucose, Whole Blood 155 mg/dL (60-115)
[2020-11-03] MEDS: Insulin Lispro 100 UNIT/ML 3 ML VIAL SUBCUT ×4 (07:42→21:40)
[2020-11-03] MEDS: 0.9 % Sodium Chloride Flush 3 ML SYRINGE IVFLUSH ×3 (07:43→21:41)
[2020-11-03 08:00] VITALS: BP 130/74; PULSE 88; RESP 16; TEMP 36.6; O2SAT 96
--- NOTE | 2020-11-03 10:14 | MHC.CM.PN ---
CM MET WITH PT WHO REPORTS HE LIVES WITH HIS GF AND IS INDEPENDENT WITH CARE AND MOBILITY. PT DENIES THE USE OF DME OR IN HOME SERVICES. CM VERIFIED PCP [facility] AT [facility], HOWEVER, PT WILL ONLY BE ACTIVE UNTIL DECEMBER UNLESS HE ATTENDS AN APPOINTMENT BEFORE THEN. THE ABOVE INFORMATION WAS CONVEYED TO PT WELL EDUCATION ON THE IMPORTANCE OF FOLLOWING UP AND MAINTAINING A PCP. PT DID NOT HAVE A HCP HOWEVER DID COMPLETE ONE TODAY NAMING HIS MOTHER, SD MELENDEZ, HIS AGENT. PT DOES NOT HAVE HER ADDRESS OR PHONE NUMBER BUT WILL ADD THE INFO TO THE DOCUMENT POST DC. CURRENT DC PLAN IS HOME WITH NO SERVICES PT WILL SELF ARRANGE TRANSPORTATION
--- NOTE | 2020-11-03 10:27 | HO.PM.IMPN ---
Subjective Subjective Date of Service: 11/03/20 <Reina Waldrop NP - Last Filed: 11/03/20 10:33> 11/03/20 <Nikolas Wright MD - Last Filed: 11/03/20 18:53> Interval History: Follow-up aspiration pneumonia No trouble breathing Feels very tired <Reina Waldrop NP - Last Filed: 11/03/20 10:33> Physical Exam Vital Signs: Vital Signs: Last Vital Signs Temp 98 F 11/03/20 08:00 Pulse 88 11/03/20 08:00 Resp 16 11/03/20 08:00 BP 130/74 11/03/20 08:00 Pulse Ox 96 11/03/20 08:00 Body Mass Index 23.4 <Reina Waldrop NP - Last Filed: 11/03/20 10:33> Appearing in no acute distress lung sounds are clear to auscultation heart regular rate rhythm, clear S1, S2 positive bowel sounds, abdomen is soft, nontender neuro patient is alert x3, no focal deficits <Reina Waldrop NP - Last Filed: 11/03/20 10:33> Objective Data Current Medications Generic Name Dose Route Start Last Admin Trade Name Freq PRN Reason Stop Dose Admin Acetaminophen 650 mg 11/02/20 03:15 11/02/20 04:28 Acetaminophen 325 Mg Tablet PO 650 mg Q6H PRN Administration Pain, Mild (Pain Scale 1-3) Albuterol/Ipratropium 3 ml 11/02/20 03:14 Albuterol/Iprat 2.5/0.5mg 3 Ml Ampul.Neb INHALE RQ4H PRN Shortness of Breath/Wheezing Benzonatate 100 mg 11/02/20 03:14 Benzonatate 100 Mg Capsule PO TID PRN Cough Enoxaparin Sodium 40 mg 11/02/20 05:00 11/03/20 05:26 Enoxaparin Sodium 40 Mg/0.4 Ml Syringe SUBCUT 40 mg Q24H [facility] Administration Insulin Glargine 10 unit 11/02/20 21:00 11/02/20 20:58 Insulin Glargine,Hum.Rec.Anlog 100 Unit/Ml 10 Ml Vial SUBCUT 10 unit BEDTIME [facility] Administration Insulin Human Lispro 0 unit 11/02/20 07:30 11/03/20 07:42 Insulin Lispro 100 Unit/Ml 3 Ml Vial SUBCUT 2 unit QIDACHS [facility] Administration Protocol Levofloxacin 750 mg 11/03/20 06:00 11/03/20 05:26 Levofloxacin 750 Mg Tablet PO 750 mg Q24H [facility] Administration Senna 17.2 mg 11/02/20 03:15 Sennosides 8.6 Mg Tablet PO BEDTIME PRN Constipation Sodium Chloride 3 ml 11/02/20 08:00 11/03/20 07:43 0.9 % Sodium Chloride Flush 3 Ml Syringe IVFLUSH 3 ml QSHIFT [facility] Administration <Reina Waldrop NP - Last Filed: 11/03/20 10:33> Labs CBC & Chem 7: : 11/03/20 05:25 11/02/20 04:21 <Reina Waldrop NP - Last Filed: 11/03/20 10:33> Microbiology Microbiology Results: Microbiology 11/02/20 04:41 Blood - Venous Blood Culture - Preliminary No growth after 24 hours. 11/02/20 04:41 Blood - Venous Blood Culture - Preliminary No growth after 24 hours. <Reina Waldrop NP - Last Filed: 11/03/20 10:33> Assessment and Plan (1) Drug overdose: Status: Acute <Reina Waldrop NP - Last Filed: 11/03/20 10:33> Assessment and Plan: This is a 40-year-old male with a past medical history of substance abuse presented to the hospital after heroin overdose found to have pneumonia and elevated blood sugar concerning for new onset diabetes CAP vs aspiration pna In the setting of drug overdose/episode of unresponsiveness Did meet sepsis on arrival with wbc 12.1 and tachycardia. no severe features noted. LA wnl. low grade fever this am. covid negative -continue IV levaquin -continue supportive care, not currently requiring oxygen -blood cultures pending New onset diabetes Random glucose 500s. HbA1c 11.8 -start on Metformin 500mg BID tomorrow for home -started on low dose Lantus, titrate as needed -continue SSI, POCs -diabetic education Substance abuse no active withdrawal at this time; pt reports relapsing but was previously clean for a long time -Addiction Medicine consulted PHILOMENA Resolved with IVF Cholelithiasis Seen incidentally on CTA. No abdominal complaints DVT prophylaxis: Lovenox Code status: Full code Attending: Dr. Wright <Reina Waldrop NP - Last Filed: 11/03/20 10:33> (2) Pneumonia: Status: Acute <Reina Waldrop NP - Last Filed: 11/03/20 10:33> Assessment and Plan: I saw and examined the patient and discussed findings, mangement, and disposition with PA and I agree with the above, except if otherwise stated. check WBC tomorrow <Nikolas Wright MD - Last Filed: 11/03/20 18:53>
--- NOTE | 2020-11-03 11:32 | MHC.RECOVSUP ---
Recovery Support note: This telegraphic typewriter operator chief followed up with patient on the medical floor to discuss his relapse and recovery support options. Patient reports no withdrawal symptoms at this time. Patient continues to report that he had abstained from drugs for several weeks and relapsed yesterday, resulting in an overdose. This telegraphic typewriter operator chief offered patient the opportunity to discuss the events that lead up to his relapse and what he was doing during the period of sobriety prior and patient declined, stating that he does not want to talk about it at all. Discussed harm reduction with patient including, focusing on tolerance and how a relapse can result in an overdose because the body does not have the same tolerance to the drug as it did before the period of sobriety. Patient acknowledged. This telegraphic typewriter operator chief offered patient information on recovery support options and referrals to therapy and a Immunology Teacher and patient declined. Encouraged patient to reach out to his RN if he changes his mind and is interested in talking about his relapse or if he is interested in resources. Patient acknowledged. Discussed case with patient's RN and Patricia Rasheed NP.
[2020-11-03 11:45] LABS: Glucose, Whole Blood 211 mg/dL (60-115)
[2020-11-03 12:00] VITALS: BP 119/71; PULSE 82; RESP 16; TEMP 36.1; O2SAT 96
[2020-11-03 15:05] VITALS: BP 120/72; PULSE 80; RESP 17; TEMP 36.1; O2SAT 96
[2020-11-03 16:30] LABS: Glucose, Whole Blood 182 mg/dL (60-115)
[2020-11-03 19:08] VITALS: BP 136/78; PULSE 91; RESP 17; TEMP 36.1; O2SAT 95
[2020-11-03 20:23] LABS: Glucose, Whole Blood 229 mg/dL (60-115)
[2020-11-03] MEDS: Insulin Glargine,Hum.rec.anlog 100 UNIT/ML 10 ML VIAL 10 UNIT SUBCUT (21:40)
[2020-11-03 23:02] VITALS: BP 131/78; PULSE 119; RESP 18; TEMP 36.7; O2SAT 95
[2020-11-04 03:39] VITALS: BP 136/80; PULSE 80; RESP 18; TEMP 36.7; O2SAT 96
[2020-11-04] MEDS: levoFLOXacin 750 MG TABLET PO (05:44)
[2020-11-04] MEDS: Enoxaparin Sodium 40 MG/0.4 ML SYRINGE SUBCUT (05:45)
[2020-11-04 07:46] LABS: Glucose, Whole Blood 267 mg/dL (60-115)
[2020-11-04 08:00] VITALS: BP 130/71; PULSE 78; RESP 20; TEMP 36.2; O2SAT 98
[2020-11-04] MEDS: Insulin Lispro 100 UNIT/ML 3 ML VIAL SUBCUT ×2 (08:16→11:53)
[2020-11-04] MEDS: 0.9 % Sodium Chloride Flush 3 ML SYRINGE IVFLUSH (08:17)
--- NOTE | 2020-11-04 08:52 | P.DS_ITS ---
DS: Providers Provider Date of Service: 11/04/20 <Reina Waldrop NP - Last Filed: 11/04/20 11:00> Date of admission: 11/02/20 03:15 <Reina Waldrop NP - Last Filed: 11/04/20 11:00> Date of discharge: 11/04/20 <Reina Waldrop NP - Last Filed: 11/04/20 11:00> Primary care physician: [facility] <Reina Waldrop NP - Last Filed: 11/04/20 11:00> Admitting clinician: Herbert Adler <Reina Waldrop NP - Last Filed: 11/04/20 11:00> Attending physician on admission: Herbert Adler <Reina Waldrop NP - Last Filed: 11/04/20 11:00> Consults: 11/02/20 03:13 Addiction Medicine Routine Consulting Provider: Patricia Rasheed Reason for consultation: opiate abuse <Reina Waldrop NP - Last Filed: 11/04/20 11:00> Attending physician on discharge: Nikolas Wrgiht <Reina Waldrop NP - Last Filed: 11/04/20 11:00> Discharging clinician: Reina Waldrop <Reina Waldrop NP - Last Filed: 11/04/20 11:00> DS: Diagnosis Discharge Diagnosis (1) Diabetes mellitus, new onset: Status: Acute <Reina Waldrop NP - Last Filed: 11/04/20 11:00> (2) Pneumonia: Status: Acute <Reina Waldrop NP - Last Filed: 11/04/20 11:00> DS: Medications Discharge Medications Home Medications: Home Medications Medication Instructions Recorded Confirmed No Known Home Meds 11/02/20 11/02/20 <Reina Waldrop NP - Last Filed: 11/04/20 11:00> DS: Summary Hospital Course Hospital Course: HP as per admitting provider 40-year-old male with a past medical history of substance abuse presented to the hospital with a chief complaint of brief unresponsive episode. Patient was found by his family members unresponsive subsequently EMS was called in and brought into the ER for further evaluation. The patient currently denies any chest pain palpitations lightheadedness dizziness. Denies any cough or sputum production. Patient mentioned that he uses illicit drugs, denies IV drug abuse, usually snorts. Denies any back pain. Denies any GI or symptoms . Pneumonia. Likely aspiration after sniffing heroin for the 1st time in an extended period time being clean. Chest CT showed no evidence of pulmonary emboli but showed bronchopneumonia with consolidation to the left lower lobe. He was treated with Levaquin while inpatient, cough suppressant and albuterol as needed. No fever and negative blood cultures. Initially had mild leukocytosis however, this has resolved. Home with a total of 7 days of Levaquin. New onset diabetes mellitus. Hemoglobin A1c 11.8. Treated with sliding scale insulin and Lantus while inpatient. Will transition to metformin 500 mg twice daily. New freestyle meter kit. He is to check 3 times a day before meals and keep a log of his blood sugars. PHILOMENA. Initially admitted with creatinine 1.48 however resolved quickly. Likely from dehydration. <Reina Waldrop NP - Last Filed: 11/04/20 11:00> Time Spent with Patient Time attestation: Total time spent providing and/or coordinating discharge services: <Reina Waldrop NP - Last Filed: 11/04/20 11:00> Discharge coordination time: Greater than 30 minutes <Reina Waldrop NP - Last Filed: 11/04/20 11:00> Quality: Stroke Does the patient have a stroke diagnosis?: No <Reina Waldrop NP - Last Filed: 11/04/20 11:00> Physical Exam Vital Signs: Vital Signs: Last Vital Signs Temp 97.2 F 11/04/20 08:00 Pulse 78 11/04/20 08:00 Resp 20 11/04/20 08:00 BP 130/71 11/04/20 08:00 Pulse Ox 98 11/04/20 08:00 Body Mass Index 23.4 <Reina Waldrop NP - Last Filed: 11/04/20 11:00> Appearing in no acute distress head is normocephalic atraumatic eyes pupils are PERRLA sclera is anicteric mouth throat mucous membranes are intact and moist neck is supple no lymphadenopathy, no JVD noted lung sounds are clear to auscultation heart regular rate rhythm, clear S1, S2 positive bowel sounds, abdomen is soft, nontender neuro patient is alert x3, no focal deficits <Reina Waldrop NP - Last Filed: 11/04/20 11:00> DS: Data Data Completed and Pending Labs on day of discharge: Laboratory Results - last 24 hr 11/03/20 11/03/20 11/03/20 11:39 16:17 19:57 POC Glucose 211 H 182 H 229 H 11/04/20 07:39 POC Glucose 267 H Preliminary micro results at discharge 11/02/20 04:41 Blood Culture - Preliminary Blood - Venous No growth after 48 hours. 11/02/20 04:41 Blood Culture - Preliminary Blood - Venous No growth after 48 hours. <Reina Waldrop NP - Last Filed: 11/04/20 11:00> Discharge Plan Discharge Anticipated Discharge Date/Time: 11/04/20 08:48 <Reina Waldrop NP - Last Filed: 11/04/20 11:00> Patient Disposition: Home, Self-Care <Reina Waldrop NP - Last Filed: 11/04/20 11:00> Discharge Diagnosis: CAP New onset diabetes mellitus <Reina Waldrop NP - Last Filed: 11/04/20 11:00> CAP New onset diabetes mellitus <Nikolas Wright MD - Last Filed: 11/04/20 16:29> Referrals: Silvia Anthony MD [Physician] - 1 Week (PT TO CALL Thursday11/05/20, TO SCHEDULE FOLLOW UP APPOINTMENT WITH PCP. PLEASE REMEMBER, YOU MUST BE SEEN BEFORE DECEMBER IN ORDER TO MAINTAIN YOUR PRIMARY CARE PROVIDER! ) [facility] [Primary Care Provider] - 1 Week <Reina Waldrop NP - Last Filed: 11/04/20 11:00> Discharge Medications: New metformin 500 mg tablet 500 mg PO BID Qty: 60 RF: 0 levofloxacin 750 mg tablet 750 mg PO DAILY Qty: 5 RF: 0 (DME) blood-glucose meter [FreeStyle Lite Meter] Kit See Rx Instructions .ROUTE .MEDSUPPLY Qty: 1 RF: 0 (DME) FreeStyle Lite Strips Strip See Rx Instructions .ROUTE .MEDSUPPLY Qty: 100 RF: 0 (DME) lancets [FreeStyle Lancets] 28 gauge misc See Rx Instructions .ROUTE .MEDSUPPLY Qty: 100 RF: 0 alcohol swabs [Alcohol Prep Pads] Pads, Medicated 1 pad topical TIDAC Qty: 200 RF: 0 <Reina Waldrop NP - Last Filed: 11/04/20 11:00> Discharge Orders: Discharge Order (Routine); Ordered 11/04/20 Ordered By: Reina Waldrop <Reina Waldrop NP - Last Filed: 11/04/20 11:00> Diet: advance to usual diet <Reina Waldrop NP - Last Filed: 11/04/20 11:00> advance to usual diet <Nikolas Wright MD - Last Filed: 11/04/20 16:29> Activity on Discharge: As tolerated <Reina Waldrop NP - Last Filed: 11/04/20 11:00> As tolerated <Nikolsa Wright MD - Last Filed: 11/04/20 16:29> Stand Alone Forms: Patient Portal Discharge page <Reina Waldrop NP - Last Filed: 11/04/20 11:00> Care Plan Goals: Better control of diabetes mellitus <Reina Waldrop NP - Last Filed: 11/04/20 11:00> Health Concerns: Community acquired pneumonia New onset diabetes mellitus <Reina Waldrop NP - Last Filed: 11/04/20 11:00> Plan of Treatment: Follow up with your primary care provider as needed Take new medication as prescribed <Reina Waldrop NP - Last Filed: 11/04/20 11:00> Assessment: See discharge summary I saw and examined the patient and discussed findings, mangement, and disposition with PA and I agree with the above, except if otherwise stated <Reina Waldrop NP - Last Filed: 11/04/20 11:00> Discharge Date/Time: 11/04/20 12:07 <Reina Waldrop NP - Last Filed: 11/04/20 11:00>
[2020-11-04 08:55] LABS: Hematocrit 44.7 % (42-52); Hemoglobin 15.3 g/dl (14.0-18.0); Mean Corpuscular HGB Conc 34.2 g/dl (31.0-36.0); Mean Corpuscular Hemoglobin 28.4 pg (27.0-33.0); Mean Corpuscular Volume 82.9 fL (80-98); Mean Platelet Volume 9.9 fL (9.4-12.4); Platelet Count 250 X10*3/uL (160-400); Red Blood Count 5.39 X10*6/uL (4.60-5.80); Red Cell Distribution Width 12.1 % (11.0-16.0); White Blood Count 10.8 X10*3/uL (4.8-10.8)
[2020-11-04 09:23] LABS: Anion Gap 11 (12-20); Blood Urea Nitrogen 11 mg/dL (9-16); Calcium 9.3 mg/dL (8.4-10.2); Carbon Dioxide 28 mmol/L (22-29); Chloride 103 mmol/L (96-108); Creatinine Clr Calc Pharmacy 119.2; Estimated Glomerular Filt Rate > 60; Glucose Random 262 mg/dL (60-115); Potassium 4.8 mmol/L (3.3-5.1); Sodium 137 mmol/L (135-145)
--- NOTE | 2020-11-04 10:52 | MHC.CM.PN ---
PT WILL DC HOME TODAY WITH NO NEW SERVICES. PT TO CALL [facility] ON 11/05/20, TO SCHEDULE FOLLOW UP APPT WITH [facility]. PT WILL SELF ARRANGE TRANSPORTATION
[2020-11-04 11:22] LABS: Glucose, Whole Blood 322 mg/dL (60-115)
[2020-11-06 21:47] LABS: Legionella Ag Urine Not Detected (Not Detected)
[2020-11-08 13:52] LABS: Mycoplasma Pneumoniae - IgG 4.43 (<=0.90); Mycoplasma Pneumoniae - IgM 89 U/mL (<770)
== END 2020-11-04 12:07 | disposition home or self-care (01) | DRG 816 ==
LOC: HO.ED 11-02 02:37 → HO.EDOVER 11-02 05:47 → HO.IMC 11-02 11:25
PROVIDERS: Internal Medicine; Nurse Practitioner Acute Care; Physician Assistant Medical; Admitting Provider Hospitalist; Emergency Provider Emergency Medicine; Visit Provider Internal Medicine
DX: T40.1X1A Poisoning by heroin, accidental (unintentional), initial encounter (principal); J69.0 Pneumonitis due to inhalation of food and vomit; N17.9 Acute kidney failure, unspecified; K80.20 Calculus of gallbladder without cholecystitis without obstruction; F11.10 Opioid abuse, uncomplicated; F17.210 Nicotine dependence, cigarettes, uncomplicated; Z20.822 Contact with and (suspected) exposure to COVID-19; Z71.6 Tobacco abuse counseling; E11.9 Type 2 diabetes mellitus without complications; Y92.9 Unspecified place or not applicable
CPT/HCPCS: 36415; 71045; 71275; 80048; 82009; 82947; 83036; 83605; 83880; 85025; 85027; 85379; 86738; 87040; 87449; 87635; 93005; 99285; J1650; Q9967

== ENCOUNTER 2021-04-15 23:27 | Emergency (ER) | payer MEDICAID, SELFPAY ==
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
[2021-04-15 23:43] VITALS: BP 131/94; PULSE 107; RESP 20; TEMP 36.6; O2SAT 97; BMI 25.2
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
--- NOTE | 2021-04-16 01:58 | PC.NURSE ---
upon discharge pt brother wanted the pt to stay for crisis eval. pt doesnt want to stay, the crisis pod offered and pt will only stay if his brother gives him drugs. during this time the other brother patricia called crisis and spoke with charlette from [facility] and told them that the pt has been depressed, has made comments that he wants to do herion and . pt denies this, denies s1 and h1. states in his past when he has done drugs he wanted to kill himself. pt then went off to the bathroom and locked the door. security called to ensure pt is not doing drugs in the bathroom, none found. pt is alert oriented, steady gait, pt declined the crisis pod, dr art and charge made aware, pt left without signing papers and home with his brother. head lac well approximated, denies pain.
== END 2021-04-16 01:56 | disposition home or self-care (01) ==
PROVIDERS: Emergency Provider Internal Medicine
DX: F33.2 Major depressive disorder, recurrent severe without psychotic features (principal); S01.01XA Laceration without foreign body of scalp, initial encounter; S09.90XA Unspecified injury of head, initial encounter; Y00.XXXA Assault by blunt object, initial encounter; F41.9 Anxiety disorder, unspecified; F11.10 Opioid abuse, uncomplicated; F14.10 Cocaine abuse, uncomplicated; Y93.89 Activity, other specified; Y92.414 Local residential or business street as the place of occurrence of the external cause; Y99.9 Unspecified external cause status; F17.200 Nicotine dependence, unspecified, uncomplicated
CPT/HCPCS: 12004; 70450; 70486; 71101; 72125; 99283; 99284

== ENCOUNTER 2022-01-24 01:38 | Inpatient (IN) | payer OTHER, MEDICAID, SELFPAY ==
[2022-01-24 01:49] VITALS: BMI 24.3
[2022-01-24 02:19] VITALS: BP 161/96; PULSE 122; RESP 20; TEMP 37.2; O2SAT 97
--- NOTE | 2022-01-24 03:05 | PC.NURSE ---
Pt now admits to having SI without a plan. He states he does not feel safe enough to leave the ED and would prefer to speak with crisis team. He remains calm and cooperative.
[2022-01-24 04:30] VITALS: BP 106/55; PULSE 69; RESP 18; TEMP 36.6; O2SAT 97
--- NOTE | 2022-01-24 04:38 | PC.NURSE ---
Pt refused labs at 04:[address] Garcia.
--- NOTE | 2022-01-24 04:39 | ED.PSYCH ---
HPI - Psych General Chief Complaint: Psychiatric Symptoms Stated Complaint: SI Time Seen by Provider: 01/24/22 04:28 Source: patient Mode of arrival: ambulatory Limitations: no limitations History of Present Illness HPI Narrative: Patient comes to the emergency room complaining of depression, suicidal ideation. Patient states that he would hurt himself by cutting his wrist. Patient has had multiple suicide attempts in the past according to the patient. Initially, when patient came in, he told his triage nurse that he is not suicidal, he has had an argument with his family. However, when I spoke to the patient, he clearly stated that he is suicidal. Related Data Previous Rx's Medication Instructions Recorded alcohol swabs (Alcohol Prep Pads) 1 pad topical TIDAC #200 ea 11/04/20 blood sugar diagnostic (FreeStyle #100 ea 11/04/20 Lite Strips) blood-glucose meter (FreeStyle #1 ea 11/04/20 Lite Meter kit) lancets 28 gauge (FreeStyle #100 ea 11/04/20 Lancets) levofloxacin 750 mg tablet 750 mg PO DAILY #5 tabs 11/04/20 metformin 500 mg tablet 500 mg PO BID #60 tabs 11/04/20 Allergies Allergy/AdvReac Type Severity Reaction Status Date / Time No Known Allergies Allergy Verified 11/02/20 13:05 [No Known Allergies*] Review of Systems Review of Systems: Constitutional : No Weight loss, No Fever, No Chills, No Night Sweats, No Fatigue, No Malaise ENT/Mouth : No Hearing loss, No Ear Pain, No Nasal Congestion, No Sinus Pain, No Hoarseness, No sore throat, No Rhinorrhea, No Swallowing Difficulty Eyes: No Eye Pain, No Swelling, No Redness, No Foreign Body, No Discharge, No Vision Changes Cardiovascular : No Chest Pain, No SOB, No Dyspnea on Exertion, No Orthopnea, No Edema, No Palpitations Respiratory : No Cough, No Sputum, No Wheezing, No Smoke Exposure, No Dyspnea Gastrointestinal : No Nausea, No Vomiting, No Diarrhea, No Constipation, No abdominal Pain, No Hematochezia, No Melena Genitourinary : no irregular bleeding, No Dysuria, No Urinary Frequency, No Hematuria, No Urinary Incontinence, No Urgency, No Flank Pain, No Urinary Flow Changes, No Hesitancy Musculoskeletal : No joint pain, No Myalgias, No Joint Swelling Skin : No Skin Lesions, No rash Neuro : No Weakness, No Numbness, No Paresthesias, No Loss of Consciousness, No Dizziness, No Headache Psych : Complaining of depression and suicidal ideation, no homicidal ideation. Heme/Lymph: No Bruising, No Bleeding,No Lymphadenopathy Endocrine : No Polyuria, No Polydipsia, No Temperature Intolerance PMF Past Medical History Medical History Substance abuse Social History Social History Household Members: Family Housing: House Do you presently have visiting nurse or other home services: No Patient Tobacco Use Status: Current everyday Tobacco user Tobacco use type: Cigarette Cigarettes Per Day: 10 Years Smoked: 10 Second Hand Smoke Exposure: Yes Substance Use Type: Heroin Advance Directives: No Advance Directives Information Provided: Yes service: No Current occupational status: unemployed Physical Exam Vital Signs: Vital Signs: Last Vital Signs Temp 97.8 F 01/24/22 04:30 Pulse 69 01/24/22 04:30 Resp 18 01/24/22 04:30 BP 106/55 L 01/24/22 04:30 Pulse Ox 97 01/24/22 04:30 O2 Del Method 01/24/22 04:30 BMI result Body Mass Index 24.3 Const: Other: Appearance: Alert. Oriented X3. No acute distress. Eyes: Pupils equal, round and reactive to light. ENT: Pharynx normal. Neck: Normal inspection. Neck supple. No lymph nodes noted. No crepitus CVS: Normal heart rate and rhythm. Pulses normal. Normal S1 and S2 Respiratory: No respiratory distress. Breath sounds normal. No Wheezing. No rales Abdomen: Soft and nontender. No rigidity. No distention. Skin: Skin warm and dry. Multiple scabs in the forehead, patient admits to picking Extremities: No lower extremity edema. No Lacerations. No Rash Neuro: Oriented X 3. No motor deficit. No sensory deficit. Moving all extremities. No slurred speech. CN 2 through 12 grossly intact Psych: calm, cooperative, normal affect Course Course Course Narrative: Patient declines any blood work or urinalysis. Patient is on a [facility] consult pending. Physician observation started at 04:40 Discharge Plan Discharge Clinical Impression: Suicidal ideation Patient Disposition: Still a Patient Prescriptions: No Action metformin 500 mg tablet 500 mg PO BID Qty: 60 0RF levofloxacin 750 mg tablet 750 mg PO DAILY Qty: 5 0RF (DME) blood-glucose meter [FreeStyle Lite Meter] Kit See Rx Instructions .ROUTE .MEDSUPPLY Qty: 1 0RF Rx Instructions: As directed (DME) FreeStyle Lite Strips Strip See Rx Instructions .ROUTE .MEDSUPPLY Qty: 100 0RF Rx Instructions: check blood sugars 3 times a day before meals (DME) lancets [FreeStyle Lancets] 28 gauge misc See Rx Instructions .ROUTE .MEDSUPPLY Qty: 100 0RF Rx Instructions: check blood sugars 3 times a day before meals alcohol swabs [Alcohol Prep Pads] Pads, Medicated 1 pad topical TIDAC Qty: 200 0RF
--- NOTE | 2022-01-24 04:50 | PC.NURSE ---
[facility] consult sent at this time
[2022-01-24 05:52] LABS: Basophils Percent Auto 0.2 % (0-2); Eosinophils Absolute Auto 0.1 X10*3/uL (0.0-0.4); Eosinophils Percent Auto 1.7 % (0-4); Hematocrit 41.5 % (42.0-52.0); Hemoglobin 13.8 g/dl (14.0-18.0); Imm Gran Abs Auto 0.02 X10*3/uL (0.00-0.03); Imm Gran Pct Auto 0.2 % (0.0-0.4); Lymphocytes Absolute Auto 2.8 X10*3/uL (1.2-4.9); Lymphocytes Percent Auto 33.9 % (20-40); MANUAL DIFF FLAG NO; Mean Corpuscular HGB Conc 33.3 g/dl (31.0-36.0); Mean Corpuscular Hemoglobin 27.7 pg (27.0-33.0); Mean Corpuscular Volume 83.2 fL (80.0-98.0); Monocytes Absolute Auto 0.9 X10*3/uL (0.1-1.2); Monocytes Percent Auto 10.4 % (2-11); Neutrophils Absolute Auto 4.4 x10*3/uL (2.0-8.3); Neutrophils Percent Auto 53.6 % (45-73); Platelet Count 203 X10*3/uL (160-400); Red Blood Count 4.99 X10*6/uL (4.60-5.80); Red Cell Distribution Width 12.3 % (11.0-16.0); White Blood Count 8.3 X10*3/uL (4.8-10.8)
[2022-01-24 06:13] LABS: Alanine Aminotransferase 56 U/L (0-40); Albumin Level 3.8 g/dL (3.5-5.0); Alkaline Phosphatase 79 U/L (39-117); Anion Gap 13 (12-20); Aspartate Amino Transferase 23 U/L (5-37); Bilirubin Total 0.4 mg/dL (0.0-1.0); Blood Urea Nitrogen 12 mg/dL (9-16); Carbon Dioxide 28 mmol/L (22-29); Chloride 103 mmol/L (96-108); Creatinine Clr Calc Pharmacy 96.9; Estimated Glomerular Filt Rate > 60; Glucose Random 126 mg/dL (60-115); Sodium 140 mmol/L (135-145); Total Protein 6.9 g/dL (6.5-8.0)
--- NOTE | 2022-01-24 13:44 | PC.NURSE ---
que informed t/w patient on sublocade
[2022-01-24 16:26] VITALS: BP 114/62; PULSE 57; RESP 16; TEMP 36.1; O2SAT 98
--- NOTE | 2022-01-24 18:06 | PC.NURSE ---
this display card writer assumed care of this pt at 1700. pt in room laying in bed at the time of assuming care. no issues observed/reported. pt in room in bed at this time
[2022-01-24 18:24] LABS: COVID-19 Test Negative (Negative); IDNOW Serial# 16C4AD1C
[2022-01-24 23:53] VITALS: BP 116/65; PULSE 54; RESP 16; TEMP 36.2; O2SAT 97
[2022-01-25 00:18] LABS: Amphetamine Screen Urine Not Detected (Not Detect); Barbiturates, Urine Not Detected (Not Detect); Benzodiazepines Screen Urine Not Detected (Not Detect); Cannabinoid Screen Urine POSITIVE (Not Detect); Cocaine Screen Urine POSITIVE (Not Detect); Fentanyl, urine POSITIVE (Not Detect); Opiate Screen Urine POSITIVE (Not Detect); Phencyclidine Screen Urine Not Detected (Not Detect)
--- NOTE | 2022-01-25 06:29 | PC.NURSE ---
Patient slept though the night, no distress observed/reported, behavior non concerning, med rec completed/pending provider's approval, disposition per care team is section 12 inpatient bed search, VSS, will continue to monitor.
[2022-01-25] MEDS: buPROPion HCl XL 150 MG TAB.ER.24H PO (09:52)
--- NOTE | 2022-01-25 10:53 | MHC.CARE ---
Care team SW went to meet with PT who was laying down with his facial mask being utilized as a sleep mask. Care team Sw was informed by PT that he was in the middle of sleeping and was asking that SW come back to meet in a bit. SW stated that it would only take a bit to meet, however PT was adamant that SW needed to return.
[2022-01-25 11:41] VITALS: BP 119/66; PULSE 54; RESP 18; TEMP 36.9; O2SAT 98
[2022-01-25 19:45] VITALS: BP 122/68; PULSE 61; RESP 16; TEMP 36.9; O2SAT 96
[2022-01-26 02:05] VITALS: BP 130/79; PULSE 65; RESP 16; TEMP 36.9; O2SAT 98
--- NOTE | 2022-01-26 05:33 | PC.NURSE ---
Patient slept through the night, no distress observed/reported, medication compliant, VSS, disposition per Care Team is section 12 inpatient bed search, no update on bed search, behavior non concerning, will continue to monitor.
[2022-01-26 16:05] VITALS: BP 125/77; PULSE 78; RESP 19; TEMP 36.9; O2SAT 97
--- NOTE | 2022-01-26 16:19 | PC.NURSE ---
pt sleeping all day and would not really talk to me, refusing all meds. sleeping and not in any acute distress all day
--- NOTE | 2022-01-27 06:16 | PC.NURSE ---
Patient slept through the night, no distress observed/reported, patient refused his AM medication yesterday, VSS, disposition per Care Team is section 12 inpatient bed search, no update on bed search, behavior non concerning, will continue to monitor.
[2022-01-27 06:18] VITALS: BP 105/54; PULSE 54; RESP 16; TEMP 36.7; O2SAT 98
--- NOTE | 2022-01-27 07:49 | PC.NURSE ---
patient appears to remain aT rest presently resp[irations are evn and unlabored patient appears in no distress
[2022-01-27] MEDS: buPROPion HCl XL 150 MG TAB.ER.24H PO (09:47)
[2022-01-27 10:50] VITALS: BP 125/72; PULSE 53; RESP 17; TEMP 36.6; O2SAT 96
[2022-01-27 21:13] VITALS: BP 140/88; PULSE 67; RESP 16; TEMP 36.6; O2SAT 99
--- NOTE | 2022-01-28 | ECG_ITS ---
Test Reason : medical clearance Blood Pressure : / mmHG Vent. Rate : 061 BPM Atrial Rate : 061 BPM P-R Int : 156 ms QRS Dur : 092 ms QT Int : 382 ms P-R-T Axes : 066 043 029 degrees QTc Int : 384 ms Normal sinus rhythm Normal ECG When compared with ECG of 01-NOV-2020 22:02, Vent. rate has decreased BY 58 BPM Referred By: Marco Gallo Electronically Signed By:FABIÁN ESQUIVEL
[2022-01-28 02:59] VITALS: BP 116/74; PULSE 55; RESP 16; TEMP 36.1; O2SAT 96
--- NOTE | 2022-01-28 07:27 | PC.NURSE ---
patient appears to remain asleep at present, respirations are even and unlabored patient appears in no distress.
[2022-01-28 07:50] VITALS: BP 101/51; PULSE 56; RESP 16; TEMP 36.5; O2SAT 98
[2022-01-28] MEDS: buPROPion HCl XL 150 MG TAB.ER.24H PO (08:52)
[2022-01-28 10:13] LABS: COVID-19 Test Negative (Negative); IDNOW Serial# 16C4AD1C
[2022-01-28 17:30] VITALS: BMI 24.6
[2022-01-28 17:52] VITALS: BP 148/81; PULSE 69; RESP 18; TEMP 36.3; O2SAT 97
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
[2022-01-28 21:20] VITALS: BP 134/78; PULSE 58; RESP 16; TEMP 36.2; O2SAT 100
[2022-01-28] MEDS: cloNIDine HCL 0.1 MG TABLET PO (21:20)
[2022-01-29 10:00] VITALS: BP 114/62; PULSE 58; RESP 16; TEMP 36.7; O2SAT 98
[2022-01-29] MEDS: buPROPion HCl XL 150 MG TAB.ER.24H PO ×2 (10:01→14:59)
[2022-01-29] MEDS: Nicotine 7 MG PATCH.TD24 TRANSDERMA (14:59)
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
[2022-01-29 22:55] VITALS: BP 126/77; PULSE 63; RESP 16; TEMP 36.4; O2SAT 99
[2022-01-29] MEDS: cloNIDine HCL 0.1 MG TABLET PO (22:59)
[2022-01-29] MEDS: traZODone HCL 50 MG TABLET PO (22:59)
[2022-01-30 07:00] VITALS: BMI 24.7
[2022-01-30 08:30] VITALS: BP 105/57; PULSE 75; RESP 16; TEMP 36.8; O2SAT 98
[2022-01-30] MEDS: buPROPion HCl XL 300 MG TAB.ER.24H PO (09:42)
--- NOTE | 2022-01-30 12:35 | PM.PSYDC ---
DS: Providers Provider Date of Service: 01/30/22 Date of admission: 01/28/22 14:50 Primary care physician: [facility] DS: Diagnosis Discharge Diagnosis (1) Substance abuse: Status: Acute (2) Depressive disorder: Status: Acute DS: Medications Discharge Medications Home Medications: Home Medications Medication Instructions Recorded Confirmed buprenorphine 8 mg-naloxone 2 mg 1 strip sublingual BID PRN Opioid 01/24/22 01/28/22 sublingual film (Suboxone) Reversal Previous Rx's Medication Instructions Recorded bupropion HCl 300 mg 24 hr tablet, 300 mg PO DAILY 30 days #30 tabs 01/30/22 extended release clonidine HCl 0.1 mg tablet 0.1 mg PO BID PRN anxiety 30 days 01/30/22 #60 tabs fluoxetine 20 mg capsule 20 mg PO DAILY 30 days #30 caps 01/30/22 nicotine (polacrilex) 2 mg buccal 2 mg buccal Q1H PRN Nicotine 01/30/22 lozenge Cravings 30 days #108 ea nicotine 7 mg/24 hr daily 7 mg transdermal DAILY 28 days #14 01/30/22 transdermal patch ea Mental Status Exam Mental Status Exam Narrative: adequately dressed and groomed. cooperative with interview. no PMA/PMR. speech incr in rate, nml amount. decr latency. thoughts linear and logical. affect normo-intense, non-labile, consistent with context. mood good. denies SI/HI/AVH. Data Data Completed and Pending Completed studies during hospitalization [Text1]: 01/24/22 01/24/22 01/24/22 05:48 05:48 18:04 WBC 8.3 RBC 4.99 Hgb 13.8 L Hct 41.5 L MCV 83.2 MCH 27.7 MCHC 33.3 RDW 12.3 Plt Count 203 MPV 9.0 L Immature Gran % (Auto) 0.2 Neut % (Auto) 53.6 Lymph % (Auto) 33.9 [place] % (Auto) 10.4 Eos % (Auto) 1.7 Baso % (Auto) 0.2 Lymph # (Auto) 2.8 [place] # (Auto) 0.9 Eos # (Auto) 0.1 Baso # (Auto) 0.0 Abs Immat Gran (auto) 0.02 Absolute Neuts (auto) 4.4 Absolute Nucleated RBC 0.000 Nucleated RBC % (auto) 0.0 Sodium 140 Potassium 4.0 Chloride 103 Carbon Dioxide 28 Anion Gap 13 BUN 12 Creatinine 0.99 Estim Creat Clear Calc 96.9 Estimated GFR > 60 Random Glucose 126 H D Calcium 9.0 Total Bilirubin 0.4 AST 23 ALT 56 H Alkaline Phosphatase 79 Total Protein 6.9 Albumin 3.8 Urine Opiates Screen Urine Fentanyl Screen Ur Barbiturates Screen Ur Phencyclidine Scrn Ur Amphetamines Screen U Benzodiazepines Scrn Urine Cocaine Screen U Marijuana (THC) Screen COVID-19 ([facility]) Negative COVID-19 Clin Com See Note 01/24/22 01/28/22 23:56 09:29 WBC RBC Hgb Hct MCV MCH MCHC RDW Plt Count MPV Immature Gran % (Auto) Neut % (Auto) Lymph % (Auto) [place] % (Auto) Eos % (Auto) Baso % (Auto) Lymph # (Auto) [place] # (Auto) Eos # (Auto) Baso # (Auto) Abs Immat Gran (auto) Absolute Neuts (auto) Absolute Nucleated RBC Nucleated RBC % (auto) Sodium Potassium Chloride Carbon Dioxide Anion Gap BUN Creatinine Estim Creat Clear Calc Estimated GFR Random Glucose Calcium Total Bilirubin AST ALT Alkaline Phosphatase Total Protein Albumin Urine Opiates Screen POSITIVE H Urine Fentanyl Screen POSITIVE H Ur Barbiturates Screen Not Detected Ur Phencyclidine Scrn Not Detected Ur Amphetamines Screen Not Detected U Benzodiazepines Scrn Not Detected Urine Cocaine Screen POSITIVE H U Marijuana (THC) Screen POSITIVE H COVID-19 ([facility]) Negative COVID-19 Clin Com See Note DS: Summary Hospital Course Hospital Course: per 01/29 admission note: per CARE team taco pt self-presented to [facility] with c/o depression and SI, no plan, due to personal issues and turmoil with his girlfriend. ? reports h/o depression and anxiety but with worsened depressive Sx over the past year.? he had been managing until recent conflict with GF. pt reports that his statements of SI were merely instrumental in getting him into the hospital and that he actually has no SI.? he states he is depressed.? he reports that over the past year he has periodically left the apartment he shares with his GF and her 13 yo daughter and run the streets using drugs.? he feels guilty about this cycle and wants to break it.? he reportedly had an argument with his GF and then went and smoked some cocaine (which he believes must have been laced with opioids bcse his utox was opioids + but he denies having used any) and then thought better of his behavior and decided to come to the hospital for help.? his utox was nalso + for cannabis; he denied regular use.? he states using alcohol gets him into this kind of trouble and so he has to stay away from that as well.? he reports the only substance he uses regularly is tobacco, 1/3 ppd.? he is interested in NRT.? reports he has seen lots of violence on the street.? he endorses nightmares, but not of the traumas.? denies intrusive thoughts, hypervigilance, or increased startle response.? gets sublocade shot.? not very interested in rehabs of CSS' or programs, has had some poor experiences there.? would like to look up a recovery agent he knows about after discharge.? really here for treatment of depression.? meds reviewed, it was noted pt has been on wellbutrin 150 mg daily for the past 8 months.? agrees to increase it to 300 mg daily.? educated pt about SSRIs/SNRIs, will discuss more tomorrow as possible adjunctive treatment.? no other requests or complaints today. Past Psychiatric History: h/o exposure to street violence, has seen people severely injured/killed.? denies PTSD or PTSD Sx are an issue for him, however. ? no h/o psych hosp. reported h/o multiple SAs (hanging) and gestures (cutting). h/o psych meds from friends of the homeless providers. has been on seroquel in the past but did not like the way he felt on it. Medical Evaluation Reviewed: Yes [facility] Medical History? Substance abuse Family History: substance use, anxiety, depression in sibs and parents. uncle completed suicide. Social History: born and raised in [place]. 9th grade education. 8 sibs, reports chaotic childhood.? only in touch with one of his bros and his mother. lots of time on the streets and managing himself growing up. court date coming up in 04/15 for resisting arrest. h/o incarceration, [facility] 2019. Substance History: h/o detox and MAT. Trauma History: see [facility] 01/29: increased wellbutrin from 150 mg daily to 300 mg daily.? T/C adding SSRI/SNRI.? sublocade on board.? clonidine PRNs. Patient educated on: diagnosis, medication risk/benefits and substance abuse 01/30: no adverse effects from medication changes yesterday. pt discussed with his brother, who reported taking fluoxetine and has had a good experience with it. pt amenable to start fluoxetine as well, at 20 mg daily today. no safety concerns, requesting discharge today, declining aftercare. planning to have meds continued by PCP for now. discharged to home per his request. Time Spent with Patient Time attestation: Total time spent providing and/or coordinating discharge services: Time spent: Greater than 30 minutes Discharge Plan Discharge Patient Disposition: Home, Self-Care Discharge Diagnosis: Depressive Disorder NOS Referrals: Therapy & Psychiatry [Other] - 1 Week (Please follow up with [facility] if you change your mind regarding outpatient mental health services) [facility] [Primary Care Provider] - 1 Week (Walk In hours Thursday through Thursday 8:30 a - 4 p) Discharge Medications: New nicotine 7 mg/24 hr Patch 24 Hour 7 mg transdermal DAILY 28 Days Qty: 14 1RF nicotine (polacrilex) 2 mg Lozenge 2 mg buccal Q1H PRN (Reason: Nicotine Cravings) 30 Days Qty: 108 0RF bupropion HCl 300 mg Tablet Extended Release 24 Hr 300 mg PO DAILY 30 Days Qty: 30 0RF fluoxetine 20 mg Capsule 20 mg PO DAILY 30 Days Qty: 30 0RF Continued buprenorphine-naloxone [Suboxone] 8-2 mg film 1 strip sublingual BID PRN (Reason: Opioid Reversal) Changed clonidine HCl 0.1 mg tablet 0.1 mg PO BID PRN (Reason: anxiety) 30 Days Qty: 60 0RF Discontinued bupropion HCl 150 mg tablet extended release 24 hr 1 tab PO DAILY Discharge Orders: Discharge Order (Routine); Ordered 01/30/22 Ordered By: Kenny Zurita Diet: Advance to usual diet Activity on Discharge: As tolerated Stand Alone Forms: Patient Portal Discharge page, Community Support Care Plan Goals: remain safe and sober in the outpatient treatment setting Health Concerns: none Plan of Treatment: take medications as prescribed, attend appointments as scheduled Assessment: not at imminent risk of harm to self or others Discharge Date/Time: 01/30/22 13:05
[2022-01-30] MEDS: FLUoxetine HCl 20 MG CAPSULE PO (12:44)
--- NOTE | 2022-01-30 13:00 | PC.NURSE ---
Juan Carlos is alert, fully oriented, pleasant and cooperative with discharge process. He denies ideation, plan or intent to harm self or others. He denies physical complaint. he declines assist to make follow up out pt appointments. He verbalizes knowledge of 3 ways to access help in the outpatient setting including crisis number, p11 and presenting at the ED.
== END 2022-01-30 13:05 | disposition home or self-care (01) | DRG 881 ==
LOC: HO.ED 01-28 11:45 → HO.PADLT16 01-28 15:15
PROVIDERS: Emergency Medicine; Student in an Organized Health Care Education/Training Program; Admitting Provider Psychiatry & Neurology Psychiatry; Emergency Provider Emergency Medicine; Visit Provider Psychiatry & Neurology Psychiatry
DX: F32.A Depression, unspecified (principal); F17.210 Nicotine dependence, cigarettes, uncomplicated; M19.90 Unspecified osteoarthritis, unspecified site; Z20.822 Contact with and (suspected) exposure to COVID-19; Z71.6 Tobacco abuse counseling; Z56.0 Unemployment, unspecified; Z79.899 Other long term (current) drug therapy
CPT/HCPCS: 36415; 80053; 80307; 85025; 87635; 93005; 99285

== ENCOUNTER 2022-06-30 02:31 | Inpatient (IN) | payer OTHER, SELFPAY ==
--- NOTE | 2022-06-30 | ECG_ITS ---
Test Reason : antipsychotic/ cocaine Blood Pressure : / mmHG Vent. Rate : 072 BPM Atrial Rate : 072 BPM P-R Int : 136 ms QRS Dur : 086 ms QT Int : 372 ms P-R-T Axes : 044 023 029 degrees QTc Int : 407 ms Normal sinus rhythm with sinus arrhythmia Normal ECG When compared with ECG of 28-JAN-2022 09:41, No significant change was found Referred By: Handy Fitzgerald Electronically Signed By:JUANITA GALARZA MD
[2022-06-30 02:35] VITALS: BP 123/81; PULSE 84; RESP 18; TEMP 36.4; O2SAT 100; BMI 24.9
[2022-06-30 03:19] LABS: Basophils Percent Auto 0.2 % (0-2); Eosinophils Absolute Auto 0.1 X10*3/uL (0.0-0.4); Eosinophils Percent Auto 0.6 % (0-4); Hematocrit 42.4 % (42.0-52.0); Hemoglobin 14.1 g/dl (14.0-18.0); Imm Gran Abs Auto 0.02 X10*3/uL (0.00-0.03); Imm Gran Pct Auto 0.2 % (0.0-0.4); Lymphocytes Absolute Auto 2.4 X10*3/uL (1.2-4.9); Lymphocytes Percent Auto 27.3 % (20-40); MANUAL DIFF FLAG NO; Mean Corpuscular HGB Conc 33.3 g/dl (31.0-36.0); Mean Corpuscular Hemoglobin 27.1 pg (27.0-33.0); Mean Corpuscular Volume 81.4 fL (80.0-98.0); Mean Platelet Volume 9.1 fL (9.4-12.4); Monocytes Absolute Auto 0.7 X10*3/uL (0.1-1.2); Monocytes Percent Auto 8.3 % (2-11); Neutrophils Absolute Auto 5.6 x10*3/uL (2.0-8.3); Neutrophils Percent Auto 63.4 % (45-73); Platelet Count 286 X10*3/uL (160-400); Red Blood Count 5.21 X10*6/uL (4.60-5.80); White Blood Count 8.8 X10*3/uL (4.8-10.8)
[2022-06-30 03:24] LABS: COVID-19 Test Negative (Negative); IDNOW Serial# BCCEAD1C
[2022-06-30 03:36] LABS: Alanine Aminotransferase 38 U/L (0-40); Albumin Level 4.1 g/dL (3.5-5.0); Alkaline Phosphatase 74 U/L (39-117); Anion Gap 15 (12-20); Aspartate Amino Transferase 23 U/L (5-37); Bilirubin Total 0.6 mg/dL (0.0-1.0); Blood Urea Nitrogen 12 mg/dL (9-16); Calcium 9.3 mg/dL (8.4-10.2); Carbon Dioxide 25 mmol/L (22-29); Chloride 104 mmol/L (96-108); Creatinine Clr Calc Pharmacy 105.5; Estimated Glomerular Filt Rate > 60; Glucose Random 101 mg/dL (60-115); Potassium 3.8 mmol/L (3.3-5.1); Sodium 140 mmol/L (135-145); Total Protein 7.3 g/dL (6.5-8.0)
[2022-06-30 03:40] LABS: Ethanol < 10 mg/dL
--- NOTE | 2022-06-30 04:58 | PC.NURSE ---
Pt. alert and oriented, calm and cooperative. Provided a sandwich and oj to pt. and he sat and watched tv while eating. Pt. moved to his room and is now sleeping, respirations even and unlabored, no distress noted. Will continue to monitor.
[2022-06-30 06:05] LABS: Appearance Urine Cloudy; Color Urine Dark Yellow; Glucose Urine UA Negative (Negative); Leukocyte Esterase Urine Negative (Negative); Nitrite Urine Negative (Negative); PH 5.5 (5.0-9.0); Specific Gravity - Urine 1.025 (1.005-1.025); Urine Blood Negative (Negative); Urine Ketones Trace mg/dL (Negative); Urine Protein Trace mg/dL (Neg-Trace)
[2022-06-30 06:28] LABS: Amphetamine Screen Urine Not Detected (Not Detect); Barbiturates, Urine Not Detected (Not Detect); Benzodiazepines Screen Urine Not Detected (Not Detect); Cannabinoid Screen Urine POSITIVE (Not Detect); Cocaine Screen Urine POSITIVE (Not Detect); Fentanyl, urine POSITIVE (Not Detect); Opiate Screen Urine POSITIVE (Not Detect); Phencyclidine Screen Urine Not Detected (Not Detect)
--- NOTE | 2022-06-30 07:23 | ED.PSYCH ---
HPI - Psych General Chief Complaint: Psychiatric Symptoms Stated Complaint: SI Time Seen by Provider: 06/30/22 03:27 History of Present Illness HPI Narrative: Patient admits to using cocaine and heroin subsequently had thoughts of wanting to kill himself. Patient had plans of killing himself using a knife then decided to stop. Patient is now very hungry. Does not want to kill himself anymore. Came in seeking help. Related Data Home Medications Medication Instructions Recorded Confirmed buprenorphine 8 mg-naloxone 2 mg 1 strip sublingual BID PRN Opioid 01/24/22 01/28/22 sublingual film (Suboxone) Reversal Previous Rx's Medication Instructions Recorded bupropion HCl 300 mg 24 hr tablet, 300 mg PO DAILY 30 days #30 tabs 01/30/22 extended release clonidine HCl 0.1 mg tablet 0.1 mg PO BID PRN anxiety 30 days 01/30/22 #60 tabs fluoxetine 20 mg capsule 20 mg PO DAILY 30 days #30 caps 01/30/22 nicotine (polacrilex) 2 mg buccal 2 mg buccal Q1H PRN Nicotine 01/30/22 lozenge Cravings 30 days #108 ea nicotine 7 mg/24 hr daily 7 mg transdermal DAILY 28 days #14 01/30/22 transdermal patch ea Allergies Allergy/AdvReac Type Severity Reaction Status Date / Time No Known Allergies Allergy Verified 11/02/20 13:05 [No Known Allergies*] Review of Systems Review of Systems: Positive suicidal ideation earlier Yes all other systems are reviewed and are negative PMFSH Past Medical History Attestation statement: The following information was validated with the patient. Medical History Substance abuse Social History Social History Household Members: Unknown / Unable to assess Housing: House Housing Other:: Reports stable housing Do you presently have visiting nurse or other home services: No Alcohol intake: current Alcohol intake frequency: a few times a week Patient Tobacco Use Status: Current everyday Tobacco user Tobacco use type: Cigarette Cigarette Packs Per Day: 1 Cigarettes Per Day: 20.0 Years Smoked: 10 Smoked in Last 30 Days: Yes e-Cigarette/Vaping Use: Never Used Second Hand Smoke Exposure: No Use of substances other than those prescribed or required for medical reasons: Yes Substance Use Type: Crack/Cocaine and Heroin Advance Directives: No service: No Current occupational status: unemployed Sexual orientation: Straight/Heterosexual Physical Exam Vital Signs: Vital Signs: Last Vital Signs Temp 97.5 F 06/30/22 02:35 Pulse 84 06/30/22 02:35 Resp 18 06/30/22 02:35 BP 123/81 06/30/22 02:35 Pulse Ox 100 06/30/22 02:35 O2 Del Method 06/30/22 02:35 BMI result Body Mass Index 24.9 Appearance: Alert. Oriented X3. No acute distress. Eyes: Pupils equal, round and reactive to light. ENT: Pharynx normal. Neck: Normal inspection. Neck supple. No lymph nodes noted. No crepitus CVS: Normal heart rate and rhythm. Pulses normal. Normal S1 and S2 Respiratory: No respiratory distress. Breath sounds normal. No Wheezing. No rales Abdomen: Soft and nontender. No rigidity. No distention. good BS x4 Skin: Skin warm and dry. Normal skin color. Normal skin turgor. Extremities: No lower extremity edema. Neurovascular intact to all extremities. No Lacerations. No Rash Neuro: Oriented X 3. No motor deficit. No sensory deficit. Moving all extermities. No slurred speech. Cranial nerves grossly intact Medical Decision Making Medical Decision Making MDM Narrative: Positive suicidal ideation. Will go ahead and get care team to evaluate patient. Currently he is not suicidal. He is in stable condition his labs were drawn in stable condition. Differential Diagnosis Depression, anxiety, polysubstance abuse Lab Data 06/30/22 03:13 06/30/22 03:13 Labs: Lab Results 06/30/22 06/30/22 06/30/22 Range/Units 03:05 03:13 03:13 WBC 8.8 (4.8-10.8) X10*3/uL RBC 5.21 (4.60-5.80) X10*6/uL Hgb 14.1 (14.0-18.0) g/dl Hct 42.4 (42.0-52.0) % MCV 81.4 (80.0-98.0) fL MCH 27.1 (27.0-33.0) pg MCHC 33.3 (31.0-36.0) g/dl RDW 12.0 (11.0-16.0) % Plt Count 286 D (160-400) X10*3/uL MPV 9.1 L (9.4-12.4) fL Immature Gran % (Auto) 0.2 (0.0-0.4) % Neut % (Auto) 63.4 (45-73) % Lymph % (Auto) 27.3 (20-40) % [place] % (Auto) 8.3 (2-11) % Eos % (Auto) 0.6 (0-4) % Baso % (Auto) 0.2 (0-2) % Lymph # (Auto) 2.4 (1.2-4.9) X10*3/uL [place] # (Auto) 0.7 (0.1-1.2) X10*3/uL Eos # (Auto) 0.1 (0.0-0.4) X10*3/uL Baso # (Auto) 0.0 (0.0-0.2) X10*3/uL Abs Immat Gran (auto) 0.02 (0.00-0.03) X10*3/uL Absolute Neuts (auto) 5.6 (2.0-8.3) x10*3/uL Absolute Nucleated RBC 0.000 (0.0-0.012) X10*3/uL Nucleated RBC % (auto) 0.0 (0.0-0.2) /100WBC Sodium 140 (135-145) mmol/L Potassium 3.8 (3.3-5.1) mmol/L Chloride 104 (96-108) mmol/L Carbon Dioxide 25 (22-29) mmol/L Anion Gap 15 (12-20) BUN 12 (9-16) mg/dL Creatinine 0.90 (0.5-1.4) mg/dL Estim Creat Clear Calc 105.5 Estimated GFR > 60 Random Glucose 101 (60-115) mg/dL Calcium 9.3 (8.4-10.2) mg/dL Total Bilirubin 0.6 (0.0-1.0) mg/dL AST 23 (5-37) U/L ALT 38 (0-40) U/L Alkaline Phosphatase 74 (39-117) U/L Total Protein 7.3 (6.5-8.0) g/dL Albumin 4.1 (3.5-5.0) g/dL Urine Color Urine Appearance Urine pH (5.0-9.0) Ur Specific [place] (1.005-1.025) Urine Protein (Neg-Trace) mg/dL Urine Glucose (UA) (Negative) mg/dL Urine Ketones (Negative) mg/dL Urine Blood (Negative) Urine Nitrite (Negative) Ur Leukocyte Esterase (Negative) Urine Opiates Screen (Not Detect) Urine Fentanyl Screen (Not Detect) Ur Barbiturates Screen (Not Detect) Ur Phencyclidine Scrn (Not Detect) Ur Amphetamines Screen (Not Detect) U Benzodiazepines Scrn (Not Detect) Urine Cocaine Screen (Not Detect) U Marijuana (THC) Screen (Not Detect) Ethyl Alcohol mg/dL COVID-19 ([facility]) Negative (Negative) COVID-19 Clin Com See Note 06/30/22 06/30/22 06/30/22 Range/Units 03:14 05:58 05:58 WBC (4.8-10.8) X10*3/uL RBC (4.60-5.80) X10*6/uL Hgb (14.0-18.0) g/dl Hct (42.0-52.0) % MCV (80.0-98.0) fL MCH (27.0-33.0) pg MCHC (31.0-36.0) g/dl RDW (11.0-16.0) % Plt Count (160-400) X10*3/uL MPV (9.4-12.4) fL Immature Gran % (Auto) (0.0-0.4) % Neut % (Auto) (45-73) % Lymph % (Auto) (20-40) % [place] % (Auto) (2-11) % Eos % (Auto) (0-4) % Baso % (Auto) (0-2) % Lymph # (Auto) (1.2-4.9) X10*3/uL [place] # (Auto) (0.1-1.2) X10*3/uL Eos # (Auto) (0.0-0.4) X10*3/uL Baso # (Auto) (0.0-0.2) X10*3/uL Abs Immat Gran (auto) (0.00-0.03) X10*3/uL Absolute Neuts (auto) (2.0-8.3) x10*3/uL Absolute Nucleated RBC (0.0-0.012) X10*3/uL Nucleated RBC % (auto) (0.0-0.2) /100WBC Sodium (135-145) mmol/L Potassium (3.3-5.1) mmol/L Chloride (96-108) mmol/L Carbon Dioxide (22-29) mmol/L Anion Gap (12-20) BUN (9-16) mg/dL Creatinine (0.5-1.4) mg/dL Estim Creat Clear Calc Estimated GFR Random Glucose (60-115) mg/dL Calcium (8.4-10.2) mg/dL Total Bilirubin (0.0-1.0) mg/dL AST (5-37) U/L ALT (0-40) U/L Alkaline Phosphatase (39-117) U/L Total Protein (6.5-8.0) g/dL Albumin (3.5-5.0) g/dL Urine Color Dark Yellow Urine Appearance Cloudy Urine pH 5.5 (5.0-9.0) Ur Specific [place] 1.025 (1.005-1.025) Urine Protein Trace (Neg-Trace) mg/dL Urine Glucose (UA) Negative (Negative) mg/dL Urine Ketones Trace (Negative) mg/dL Urine Blood Negative (Negative) Urine Nitrite Negative (Negative) Ur Leukocyte Esterase Negative (Negative) Urine Opiates Screen POSITIVE H (Not Detect) Urine Fentanyl Screen POSITIVE H (Not Detect) Ur Barbiturates Screen Not Detected (Not Detect) Ur Phencyclidine Scrn Not Detected (Not Detect) Ur Amphetamines Screen Not Detected (Not Detect) U Benzodiazepines Scrn Not Detected (Not Detect) Urine Cocaine Screen POSITIVE H (Not Detect) U Marijuana (THC) Screen POSITIVE H (Not Detect) Ethyl Alcohol < 10 mg/dL COVID-19 ([facility]TE) (Negative) COVID-19 Clin Com Discharge Plan Discharge Clinical Impression: Substance abuse, Depressive disorder, Suicidal ideation Patient Disposition: Still a Patient Prescriptions: No Action buprenorphine-naloxone [Suboxone] 8-2 mg film 1 strip sublingual BID PRN (Reason: Opioid Reversal) nicotine 7 mg/24 hr Patch 24 Hour 7 mg transdermal DAILY 28 Days Qty: 14 1RF nicotine (polacrilex) 2 mg Lozenge 2 mg buccal Q1H PRN (Reason: Nicotine Cravings) 30 Days Qty: 108 0RF bupropion HCl 300 mg Tablet Extended Release 24 Hr 300 mg PO DAILY 30 Days Qty: 30 0RF fluoxetine 20 mg Capsule 20 mg PO DAILY 30 Days Qty: 30 0RF clonidine HCl 0.1 mg tablet 0.1 mg PO BID PRN (Reason: anxiety) 30 Days Qty: 60 0RF Interventions: [place]-Suicide Risk Severity Scale Last Done: 06/30/22 02:37
--- NOTE | 2022-06-30 09:18 | MHC.CARE ---
patient is inpt bed search.
--- NOTE | 2022-06-30 20:23 | PHA.MEDREC ---
MED REC COMPLETE, PATIENT WAS PREVIOUSLY ON SUBOXONE AND SUBLOCADE BUT HAS RUN OUT WEEKS AGO Pharmacy Consult ? Medication Reconciliation Pharmacy has completed the medication reconciliation.
[2022-06-30] MEDS: Mirtazapine 7.5 MG TABLET PO (21:34)
--- NOTE | 2022-06-30 23:23 | PC.ADMIT ---
Patient is a 42 year old single male who was admitted as a CV admission to at 1950 and placed on 15 minute safety checks. Patient was medically cleared in the [facility], evaluated by the CARE team and deemed in need of IPLOC secondary to street drug use, noncompliance with medications and current SI WITH CAH. Patient has a long history of drug use as well as suicidal behaviors. Patient was cooperative during the admission process and denied any SI but did say he is bothered by CAH to kill himself. Patient acknowledges that he is not compliant with medications and does not follow up with outpatient providers. He did not rate his anxiety or depression. Patient has been on M3 in the past. All legals were signed. Treatment plan initiated.
[2022-07-01 09:46] LABS: Alanine Aminotransferase 37 U/L (0-40); Albumin Level 3.7 g/dL (3.5-5.0); Alkaline Phosphatase 65 U/L (39-117); Anion Gap 15 (12-20); Aspartate Amino Transferase 23 U/L (5-37); Bilirubin Total 0.4 mg/dL (0.0-1.0); Blood Urea Nitrogen 10 mg/dL (9-16); Calcium 9.3 mg/dL (8.4-10.2); Carbon Dioxide 26 mmol/L (22-29); Chloride 106 mmol/L (96-108); Cholesterol 95 mg/dL; Creatinine Clr Calc Pharmacy 111.7; Estimated Glomerular Filt Rate > 60; Glucose Fasting 91 mg/dL (60-99); HDL Cholesterol 34 mg/dL; LDL Cholesterol Calculated 48 mg/dl; Potassium 4.3 mmol/L (3.3-5.1); Sodium 143 mmol/L (135-145); Total Protein 6.7 g/dL (6.5-8.0); Triglycerides 69 mg/dL
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
[2022-07-01 10:17] LABS: Free T4 (Free Thyroxine) 0.98 ng/dL (0.71-1.85); Thyroid Stimulating Hormone 1.35 uIU/mL (0.32-4.0); Vitamin B12 448 pg/mL (200-900)
[2022-07-01 12:51] VITALS: BP 127/77; PULSE 69; RESP 16; TEMP 36.8; O2SAT 99
[2022-07-01 16:50] VITALS: BP 134/77; PULSE 76; TEMP 36.8; O2SAT 98
--- NOTE | 2022-07-01 20:39 | PC.NURSE ---
Patient has been in bed the entire shift. He refused his night medication, Remeron 7.5 mg.
[2022-07-02] MEDS: Thiamine HCL 100 MG TABLET PO (08:42)
[2022-07-02] MEDS: Multivitamin TABLET 1 TAB PO (08:42)
[2022-07-02 08:59] VITALS: BP 139/84; PULSE 65; RESP 14; TEMP 36.3; O2SAT 96
--- NOTE | 2022-07-02 10:21 | HO.PSYCHPN ---
Subjective Subjective Date of Service: 07/02/22 Reason For Visit: Suicidal depression/ substance abuse Interim History: Met with patient and social work; discussed patient in teams Patient more amenable to talking though still difficult with which to engage. Patient continues to lay on bed and kept his eyes close during interview. Patient denies that he is in any kind withdrawal. He says he is just lying in bed because he is depressed. He says he has been depressed all his life but the past year has been worse. He says he does not follow-up with outpatient providers but cannot say why. He said this past month his depression has gotten worse and he has been isolating; he has been living with his mom but he does not want to go back there. This past week he said he started having suicidal thoughts so he figured he better come to the hospital before he he moved towards self-harm. He reports he is still feeling suicidal and thinking about life as what is the point. Patient said he was just started on mirtazapine him for 1 day but will continue taking it. He says his goal is to get a little better and then get out on his way. He says he would like a program to go to. Patient vague about substance abuse. He says he has been on sub look aide for 1 and half years. He states stopped recently maybe 2 weeks ago though it is not clear. He is ambivalent about getting back on it saying he still has urges to use however he also says that it did help. Regarding cocaine he says not every day. He reports he is eating and sleeping well. Endorses history of trauma but did not respond to whether PTSD symptoms are flaring. [employer] Consultant discussed last admission and patient agrees to get back on Wellbutrin. Mental Status Exam Mental Status Exam Narrative: Pt is alert and oriented; behavior is a little more cooperative; calm; patient is not in distress; dressed in hospital attire with unkempt hair, scruffy facial hair, poor hygiene, not attending to ADL's; mood is described as depressed and affect congruent, downcast; keeps eyes closed; Speech is normal rate, volume and prosody and not pressured; psychomotor retardation present; thought process is goal directed; Thought content is on depression, getting better; no expressions of delusions or paranoid thinking; +SI; no HI; There is no evidence of perceptual disturbance. Patients insight and judgment are impaired. Diagnostics Vital Signs (24Hr): Vital Signs - 24 hr 07/01/22 12:51 07/01/22 16:50 07/02/22 08:59 Temperature 98.3 F 98.3 F 97.4 F Pulse Rate 69 76 65 Respiratory Rate 16 14 Blood Pressure 127/77 134/77 139/84 Pulse Oximetry 99 98 96 Oxygen Delivery Method Room Air Room Air Room Air BMI result Body Mass Index 24.9 Labs 06/30/22 03:13 07/01/22 08:16 Labs: Laboratory Results - last 48 hr 07/01/22 08:16 Sodium 143 Potassium 4.3 Chloride 106 Carbon Dioxide 26 Anion Gap 15 BUN 10 Creatinine 0.85 Estim Creat Clear Calc 111.7 Estimated GFR > 60 Fasting Glucose 91 Calcium 9.3 Total Bilirubin 0.4 AST 23 ALT 37 Alkaline Phosphatase 65 Total Protein 6.7 Albumin 3.7 Triglycerides 69 Cholesterol 95 LDL Cholesterol, Calc 48 HDL Cholesterol 34 Vitamin B12 448 Folate 14.0 TSH 1.35 Free T4 0.98 Medications Medications Current Medications Acetaminophen (Acetaminophen 325 Mg Tablet) 650 mg PO Q6H PRN PRN Reason: Headache/Pain Mild Scale (1-3) Al Hydroxide/Mg Hydroxide (Magnesium Hydrox/Alum Hydrox 30 Ml Oral.Susp) 30 ml PO Q6H PRN PRN Reason: Heartburn/Nausea Clonidine HCl (Clonidine Hcl 0.1 Mg Tablet) 0.1 mg PO Q4H PRN; Protocol PRN Reason: withdrawal/anxiety Cyclobenzaprine HCl (Cyclobenzaprine Hcl 10 Mg Tablet) 10 mg PO TID PRN PRN Reason: Muscle aches Hydroxyzine HCl (Hydroxyzine Hcl 25 Mg Tablet) 25 mg PO Q6H PRN PRN Reason: Anxiety Magnesium Hydroxide (Milk Of Magnesia 30 Ml Oral.Susp) 30 ml PO DAILY PRN PRN Reason: Constipation Mirtazapine (Mirtazapine 7.5 Mg Tablet) 7.5 mg PO BEDTIME [facility] Last Admin: 07/01/22 20:39 Dose: Not Given Multivitamins/Vitamin C (Multivitamin Tablet) 1 tab PO DAILY [facility] Last Admin: 07/02/22 08:42 Dose: 1 tab Thiamine HCl (Thiamine Hcl 100 Mg Tablet) 100 mg PO DAILY [facility] Last Admin: 07/02/22 08:42 Dose: 100 mg Allergies Allergies Allergy/AdvReac Type Severity Reaction Status Date / Time No Known Allergies Allergy Verified 11/02/20 13:05 [No Known Allergies*] Assessment & Plan Assessment & Plan (1) MDD (major depressive disorder), recurrent episode, moderate: Status: Acute Code(s): F33.1 - Major depressive disorder, recurrent, moderate (2) PTSD (post-traumatic stress disorder): Status: Acute Code(s): F43.10 - Post-traumatic stress disorder, unspecified (3) Cocaine use disorder: Status: Acute Code(s): F14.10 - Cocaine abuse, uncomplicated (4) Opioid use disorder: Status: Acute Code(s): F11.90 - Opioid use, unspecified, uncomplicated Plan Patient is a 42-year-old male with history of depression, substance abuse who self presents for suicidal ideation with vague plans in the face of substance abuse with cocaine, heroin. Reported auditory hallucinations telling himself to harm himself or others. In the ED patient said that SI had resolved. -reviewed ED note; reviewed psych admission and discharge note from January 2022 where patient's Wellbutrin was increased. -history of poor follow-up; AH likely mood congruent, but will inquire further once patient is willing to engage. Patient is also likely withdrawing from cocaine and possibly opiates. 07/02 patient denies he is in any withdrawal. Says depressed with suicidal ideation. Agrees to get back on Wellbutrin and continuing mirtazapine Plan: CV Q 15 minute checks Wellbutrin IR 75 mg 1 time dose today Will Restart Wellbutrin XL 150 mg daily Continue mirtazapine 7.5 mg q.h.s. (admitting provider ordered) gather collateral Will add medications to help comfort withdrawal. Patient educated on: diagnosis, medication risk/benefits and substance abuse Informed Consent: understands Reason for contiued inpatient stay Substantial Risk for: rapid decompensation Time Spent With Patient Time: Total time managing care of this patient today ____ minutes.
[2022-07-02 12:00] VITALS: PULSE 72
[2022-07-02] MEDS: buPROPion HCL 75 MG TABLET PO (13:40)
[2022-07-02 18:15] VITALS: BP 131/81; PULSE 74; TEMP 36.8; O2SAT 97
[2022-07-02] MEDS: Mirtazapine 7.5 MG TABLET PO (20:41)
[2022-07-03 08:00] VITALS: PULSE 73
[2022-07-03] MEDS: buPROPion HCl XL 150 MG TAB.ER.24H PO (09:30)
[2022-07-03 09:31] VITALS: BP 130/86; PULSE 73; RESP 14; TEMP 36.8; O2SAT 96
--- NOTE | 2022-07-03 11:02 | P.PNPSI_ITS ---
Subjective Subjective Date of Service: 07/03/22 Reason For Visit: Suicidal depression/ substance abuse Interim History: Met with patient; discussed in teams Patient remains depressed with SI. He continues to have his eyes closed during interview. Patient says he does not want to talk but he is agreeable to discuss medication. He says Wellbutrin 150 mg did not work in the past but he agrees that higher dose may help. Still ambivalent about Suboxone/sublicade. Mental Status Exam Mental Status Exam Narrative: Pt is alert and oriented; behavior is marginally cooperative but polite; calm; patient is not in distress; dressed in hospital attire with unkempt hair, scruff y facial hair, poor hygiene, not attending to ADL's; mood is described as depressed and affect congruent, downcast; keeps eyes closed; Speech is normal rate, volume and prosody and not pressured; psychomotor retardation present; thought process is goal directed; Thought content is on depression, getting better; no expressions of delusions or paranoid thinking; +SI; no HI; There is no evidence of perceptual disturbance. Patients insight and judgment are impaired. Diagnostics Vital Signs (24Hr): Vital Signs - 24 hr 07/02/22 18:15 07/03/22 09:31 Temperature 98.3 F 98.3 F Pulse Rate 74 73 Respiratory Rate 14 Blood Pressure 131/81 130/86 Pulse Oximetry 97 96 Oxygen Delivery Method Room Air Room Air BMI result Body Mass Index 24.9 Labs 06/30/22 03:13 07/01/22 08:16 Medications Medications Current Medications Acetaminophen (Acetaminophen 325 Mg Tablet) 650 mg PO Q6H PRN PRN Reason: Headache/Pain Mild Scale (1-3) Al Hydroxide/Mg Hydroxide (Magnesium Hydrox/Alum Hydrox 30 Ml Oral.Susp) 30 ml PO Q6H PRN PRN Reason: Heartburn/Nausea Bupropion HCl (Bupropion Hcl Xl 150 Mg Tab.Er.24h) 150 mg PO DAILY [facility] Clonidine HCl (Clonidine Hcl 0.1 Mg Tablet) 0.1 mg PO Q4H PRN; Protocol PRN Reason: withdrawal/anxiety Clonidine HCl (Clonidine Hcl 0.1 Mg Tablet) 0.1 mg PO BID PRN; Protocol PRN Reason: anxiety Cyclobenzaprine HCl (Cyclobenzaprine Hcl 10 Mg Tablet) 10 mg PO TID PRN PRN Reason: Muscle aches Hydroxyzine HCl (Hydroxyzine Hcl 25 Mg Tablet) 25 mg PO Q6H PRN PRN Reason: Anxiety Hydroxyzine HCl (Hydroxyzine Hcl 50 Mg Tablet) 50 mg PO TID PRN PRN Reason: Anxiety Magnesium Hydroxide (Milk Of Magnesia 30 Ml Oral.Susp) 30 ml PO DAILY PRN PRN Reason: Constipation Melatonin (Melatonin 3 Mg Tablet) 9 mg PO BEDTIME PRN PRN Reason: Sleep Mirtazapine (Mirtazapine 7.5 Mg Tablet) 7.5 mg PO BEDTIME [facility] Last Admin: 07/02/22 20:41 Dose: 7.5 mg Multivitamins/Vitamin C (Multivitamin Tablet) 1 tab PO DAILY [facility] Last Admin: 07/03/22 09:30 Dose: Not Given Thiamine HCl (Thiamine Hcl 100 Mg Tablet) 100 mg PO DAILY [facility] Last Admin: 07/03/22 09:30 Dose: Not Given Allergies Allergies Allergy/AdvReac Type Severity Reaction Status Date / Time No Known Allergies Allergy Verified 11/02/20 13:05 [No Known Allergies*] Assessment & Plan Assessment & Plan (1) MDD (major depressive disorder), recurrent episode, moderate: Status: Acute Code(s): F33.1 - Major depressive disorder, recurrent, moderate (2) PTSD (post-traumatic stress disorder): Status: Acute Code(s): F43.10 - Post-traumatic stress disorder, unspecified (3) Cocaine use disorder: Status: Acute Code(s): F14.10 - Cocaine abuse, uncomplicated (4) Opioid use disorder: Status: Acute Code(s): F11.90 - Opioid use, unspecified, uncomplicated Plan Patient is a 42-year-old male with history of depression, substance abuse who self presents for suicidal ideation with vague plans in the face of substance abuse with cocaine, heroin. Reported auditory hallucinations telling himself to harm himself or others. In the ED patient said that SI had resolved. -reviewed ED note; reviewed psych admission and discharge note from January 2022 where patient's Wellbutrin was increased. -history of poor follow-up; AH likely mood congruent, but will inquire further once patient is willing to engage. Patient is also likely withdrawing from cocaine and possibly opiates. 07/02 patient denies he is in any withdrawal. Says depressed with suicidal ideation. Agrees to get back on Wellbutrin and continuing mirtazapine 07/03 patient remains in bed, isolative and with limited cooperation. He says he still depressed but agrees to titration of Wellbutrin. Not attending to ADLs Plan: CV Q 15 minute checks Continue Wellbutrin XL 150 mg daily; will titrate to 300 mg Continue mirtazapine 7.5 mg q.h.s. (admitting provider ordered) gather collateral Will add medications to help comfort withdrawal. Patient educated on: diagnosis and medication risk/benefits Informed Consent: understands Reason for contiued inpatient stay Substantial Risk for: rapid decompensation Time Spent With Patient Time: Total time managing care of this patient today ____ minutes.
[2022-07-03 12:26] VITALS: PULSE 85
[2022-07-03 16:00] VITALS: PULSE 84
[2022-07-03 18:00] VITALS: BP 124/78; PULSE 85; RESP 16; TEMP 36.6; O2SAT 98
[2022-07-03] MEDS: Mirtazapine 7.5 MG TABLET PO (19:22)
[2022-07-03 20:00] VITALS: PULSE 84
[2022-07-04] MEDS: buPROPion HCl XL 300 MG TAB.ER.24H PO (08:18)
[2022-07-04 08:40] VITALS: BP 128/79; PULSE 103; RESP 16; TEMP 36.9; O2SAT 97
[2022-07-04 10:44] VITALS: PULSE 78
[2022-07-04 12:00] VITALS: PULSE 74
--- NOTE | 2022-07-04 14:40 | HO.PSYCHPN ---
Subjective Subjective Date of Service: 07/04/22 Reason For Visit: Suicidal depression/ substance abuse Interim History: met w/ patient; discussed in teams pt in day room, showered; he says he is still depressed, with intermittent passive SI, but he is out of the deep part of his depression. He hopes medication will work. Still ambivalent about suboxone/sublicade Mental Status Exam Mental Status Exam Narrative: Pt is alert and oriented; behavior is cooperative, calm; patient is not in distress; dressed in hospital attire with adequate hygiene; mood is described as depressed and affect congruent, but brighter; adequate eye contact; Speech is normal rate, volume and prosody and not pressured;no psychomotor retardation present; thought process is goal directed; Thought content is on depression, getting better; no expressions of delusions or paranoid thinking; intermittent passive SI; no HI; There is no evidence of perceptual disturbance. Patients insight and judgment are impaired but improving Diagnostics Vital Signs (24Hr): Vital Signs - 24 hr 07/03/22 18:00 07/04/22 08:40 Temperature 97.8 F 98.4 F Pulse Rate 85 103 H Respiratory Rate 16 16 Blood Pressure 124/78 128/79 Pulse Oximetry 98 97 Oxygen Delivery Method Room Air Room Air BMI result Body Mass Index 24.9 Labs 06/30/22 03:13 07/01/22 08:16 Medications Medications Current Medications Acetaminophen (Acetaminophen 325 Mg Tablet) 650 mg PO Q6H PRN PRN Reason: Headache/Pain Mild Scale (1-3) Al Hydroxide/Mg Hydroxide (Magnesium Hydrox/Alum Hydrox 30 Ml Oral.Susp) 30 ml PO Q6H PRN PRN Reason: Heartburn/Nausea Bupropion HCl (Bupropion Hcl Xl 300 Mg Tab.Er.24h) 300 mg PO DAILY [facility] Last Admin: 07/04/22 08:18 Dose: 300 mg Clonidine HCl (Clonidine Hcl 0.1 Mg Tablet) 0.1 mg PO Q4H PRN; Protocol PRN Reason: withdrawal/anxiety Cyclobenzaprine HCl (Cyclobenzaprine Hcl 10 Mg Tablet) 10 mg PO TID PRN PRN Reason: Muscle aches Hydroxyzine HCl (Hydroxyzine Hcl 50 Mg Tablet) 50 mg PO TID PRN PRN Reason: Anxiety Magnesium Hydroxide (Milk Of Magnesia 30 Ml Oral.Susp) 30 ml PO DAILY PRN PRN Reason: Constipation Melatonin (Melatonin 3 Mg Tablet) 9 mg PO BEDTIME PRN PRN Reason: Sleep Mirtazapine (Mirtazapine 7.5 Mg Tablet) 7.5 mg PO BEDTIME [facility] Last Admin: 07/03/22 19:22 Dose: 7.5 mg Multivitamins/Vitamin C (Multivitamin Tablet) 1 tab PO DAILY [facility] Last Admin: 07/04/22 08:21 Dose: Not Given Thiamine HCl (Thiamine Hcl 100 Mg Tablet) 100 mg PO DAILY [facility] Last Admin: 07/04/22 08:21 Dose: Not Given Allergies Allergies Allergy/AdvReac Type Severity Reaction Status Date / Time No Known Allergies Allergy Verified 11/02/20 13:05 [No Known Allergies*] Assessment & Plan Assessment & Plan (1) MDD (major depressive disorder), recurrent episode, moderate: Status: Acute Code(s): F33.1 - Major depressive disorder, recurrent, moderate (2) PTSD (post-traumatic stress disorder): Status: Acute Code(s): F43.10 - Post-traumatic stress disorder, unspecified (3) Cocaine use disorder: Status: Acute Code(s): F14.10 - Cocaine abuse, uncomplicated (4) Opioid use disorder: Status: Acute Code(s): F11.90 - Opioid use, unspecified, uncomplicated Plan Patient is a 42-year-old male with history of depression, substance abuse who self presents for suicidal ideation with vague plans in the face of substance abuse with cocaine, heroin. Reported auditory hallucinations telling himself to harm himself or others. In the ED patient said that SI had resolved. -reviewed ED note; reviewed psych admission and discharge note from January 2022 where patient's Wellbutrin was increased. -history of poor follow-up; AH likely mood congruent, but will inquire further once patient is willing to engage. Patient is also likely withdrawing from cocaine and possibly opiates. 07/02 patient denies he is in any withdrawal. Says depressed with suicidal ideation. Agrees to get back on Wellbutrin and continuing mirtazapine 07/03 patient remains in bed, isolative and with limited cooperation. He says he still depressed but agrees to titration of Wellbutrin. Not attending to ADLs 07/04 doing a little better; continue current tx plan Plan: CV Q 15 minute checks Continue Wellbutrin XL 150 mg daily; will titrate to 300 mg Continue mirtazapine 7.5 mg q.h.s. (admitting provider ordered) gather collateral Will add medications to help comfort withdrawal. Patient educated on: diagnosis, medication risk/benefits and substance abuse Informed Consent: understands Reason for contiued inpatient stay Substantial Risk for: rapid decompensation Time Spent With Patient Time: Total time managing care of this patient today ____ minutes.
[2022-07-04 18:00] VITALS: BP 131/71; PULSE 74; RESP 16; TEMP 36.5; O2SAT 98
[2022-07-04] MEDS: Mirtazapine 7.5 MG TABLET PO (20:48)
[2022-07-05 08:00] VITALS: BP 142/84; PULSE 70; TEMP 35.9; O2SAT 99
[2022-07-05] MEDS: Thiamine HCL 100 MG TABLET PO (09:01)
[2022-07-05] MEDS: Multivitamin TABLET 1 TAB PO (09:01)
[2022-07-05] MEDS: buPROPion HCl XL 300 MG TAB.ER.24H PO (09:01)
--- NOTE | 2022-07-05 09:35 | HO.PSYCHPN ---
Subjective Subjective Date of Service: 07/05/22 Reason For Visit: Suicidal depression/ substance abuse Interim History: Met with patient; discussed in teams Patient says he has doing better overall. Asked about PRNs available which he will utilize. Still ambivalent about Suboxone, maintenance medication. Otherwise more out about, social with peers in the milieu, attended group. Mental Status Exam Mental Status Exam Narrative: Pt is alert and oriented; behavior is cooperative, calm; patient is not in distress; dressed in hospital attire with adequate hygiene; mood is described as little better and affect congruent, brighter; adequate eye contact; Speech is normal rate, volume and prosody and not pressured;no psychomotor retardation present; thought process is goal directed; Thought content is on depression, getting better; no expressions of delusions or paranoid thinking; intermittent passive SI; no HI; There is no evidence of perceptual disturbance. Patients insight and judgment are impaired but improving Diagnostics Vital Signs (24Hr): Vital Signs - 24 hr 07/04/22 18:00 Temperature 97.7 F Pulse Rate 74 Respiratory Rate 16 Blood Pressure 131/71 Pulse Oximetry 98 Oxygen Delivery Method Room Air BMI result Body Mass Index 24.9 Labs 06/30/22 03:13 07/01/22 08:16 Medications Medications Current Medications Acetaminophen (Acetaminophen 325 Mg Tablet) 650 mg PO Q6H PRN PRN Reason: Headache/Pain Mild Scale (1-3) Al Hydroxide/Mg Hydroxide (Magnesium Hydrox/Alum Hydrox 30 Ml Oral.Susp) 30 ml PO Q6H PRN PRN Reason: Heartburn/Nausea Bupropion HCl (Bupropion Hcl Xl 300 Mg Tab.Er.24h) 300 mg PO DAILY [facility] Last Admin: 07/05/22 09:01 Dose: 300 mg Clonidine HCl (Clonidine Hcl 0.1 Mg Tablet) 0.1 mg PO Q4H PRN; Protocol PRN Reason: withdrawal/anxiety Cyclobenzaprine HCl (Cyclobenzaprine Hcl 10 Mg Tablet) 10 mg PO TID PRN PRN Reason: Muscle aches Hydroxyzine HCl (Hydroxyzine Hcl 50 Mg Tablet) 50 mg PO TID PRN PRN Reason: Anxiety Magnesium Hydroxide (Milk Of Magnesia 30 Ml Oral.Susp) 30 ml PO DAILY PRN PRN Reason: Constipation Melatonin (Melatonin 3 Mg Tablet) 9 mg PO BEDTIME PRN PRN Reason: Sleep Mirtazapine (Mirtazapine 7.5 Mg Tablet) 7.5 mg PO BEDTIME [facility] Last Admin: 07/04/22 20:48 Dose: 7.5 mg Multivitamins/Vitamin C (Multivitamin Tablet) 1 tab PO DAILY [facility] Last Admin: 07/05/22 09:01 Dose: 1 tab Thiamine HCl (Thiamine Hcl 100 Mg Tablet) 100 mg PO DAILY [facility] Last Admin: 07/05/22 09:01 Dose: 100 mg Allergies Allergies Allergy/AdvReac Type Severity Reaction Status Date / Time No Known Allergies Allergy Verified 11/02/20 13:05 [No Known Allergies*] Assessment & Plan Assessment & Plan (1) MDD (major depressive disorder), recurrent episode, moderate: Status: Acute Code(s): F33.1 - Major depressive disorder, recurrent, moderate (2) PTSD (post-traumatic stress disorder): Status: Acute Code(s): F43.10 - Post-traumatic stress disorder, unspecified (3) Cocaine use disorder: Status: Acute Code(s): F14.10 - Cocaine abuse, uncomplicated (4) Opioid use disorder: Status: Acute Code(s): F11.90 - Opioid use, unspecified, uncomplicated Plan Patient is a 42-year-old male with history of depression, substance abuse who self presents for suicidal ideation with vague plans in the face of substance abuse with cocaine, heroin. Reported auditory hallucinations telling himself to harm himself or others. In the ED patient said that SI had resolved. -reviewed ED note; reviewed psych admission and discharge note from January 2022 where patient's Wellbutrin was increased. -history of poor follow-up; AH likely mood congruent, but will inquire further once patient is willing to engage. Patient is also likely withdrawing from cocaine and possibly opiates. 07/02 patient denies he is in any withdrawal. Says depressed with suicidal ideation. Agrees to get back on Wellbutrin and continuing mirtazapine 07/03 patient remains in bed, isolative and with limited cooperation. He says he still depressed but agrees to titration of Wellbutrin. Not attending to ADLs 07/04 doing a little better; continue current tx plan 07/05 continues to improve; continue current regimen Plan: CV Q 15 minute checks Continue Wellbutrin XL 300mg daily Continue mirtazapine 7.5 mg q.h.s. gather collateral Will add medications to help comfort withdrawal. Patient educated on: diagnosis, medication risk/benefits and substance abuse Informed Consent: understands Reason for contiued inpatient stay Substantial Risk for: rapid decompensation Time Spent With Patient Time: Total time managing care of this patient today ____ minutes.
[2022-07-05 12:20] VITALS: BP 138/77
[2022-07-05] MEDS: hydrOXYzine HCL 50 MG TABLET PO ×3 (12:25→23:15)
[2022-07-05] MEDS: cloNIDine HCL 0.1 MG TABLET PO ×3 (12:25→23:13)
[2022-07-05 16:10] VITALS: BP 115/68; PULSE 80; TEMP 36.4; O2SAT 99
[2022-07-05] MEDS: Mirtazapine 7.5 MG TABLET PO (21:51)
[2022-07-06 06:00] VITALS: BP 99/58; PULSE 58; RESP 16; TEMP 35.9; O2SAT 98
[2022-07-06] MEDS: Thiamine HCL 100 MG TABLET PO (08:38)
[2022-07-06] MEDS: buPROPion HCl XL 300 MG TAB.ER.24H PO (08:38)
[2022-07-06] MEDS: Multivitamin TABLET 1 TAB PO (08:38)
[2022-07-06 11:52] VITALS: BP 107/66; PULSE 79; RESP 18; O2SAT 99
[2022-07-06] MEDS: cloNIDine HCL 0.1 MG TABLET PO ×2 (11:53→21:03)
--- NOTE | 2022-07-06 13:44 | HO.PSYCHPN ---
Subjective Subjective Date of Service: 07/06/22 Reason For Visit: Suicidal depression/ substance abuse Interim History: Met with patient; discussed in teams Patient says he has continuing to improve in that mood is good enough still ambivalent about Suboxone. Mental Status Exam Mental Status Exam Narrative: Pt is alert and oriented; behavior is cooperative, calm; patient is not in distress; dressed in hospital attire with adequate hygiene; mood is described as little better and affect congruent, brighter; adequate eye contact; Speech is normal rate, volume and prosody and not pressured;no psychomotor retardation present; thought process is goal directed; Thought content is on depression, getting better; no expressions of delusions or paranoid thinking; intermittent passive SI; no HI; There is no evidence of perceptual disturbance. Patients insight and judgment are impaired but improving Diagnostics Vital Signs (24Hr): Vital Signs - 24 hr 07/05/22 16:10 07/06/22 06:00 07/06/22 11:52 Temperature 97.6 F 96.6 F L Pulse Rate 80 58 79 Respiratory Rate 16 18 Blood Pressure 115/68 99/58 L 107/66 Pulse Oximetry 99 98 99 Oxygen Delivery Method Room Air Room Air Room Air BMI result Body Mass Index 24.9 Labs 06/30/22 03:13 07/01/22 08:16 Medications Medications Current Medications Acetaminophen (Acetaminophen 325 Mg Tablet) 650 mg PO Q6H PRN PRN Reason: Headache/Pain Mild Scale (1-3) Al Hydroxide/Mg Hydroxide (Magnesium Hydrox/Alum Hydrox 30 Ml Oral.Susp) 30 ml PO Q6H PRN PRN Reason: Heartburn/Nausea Bupropion HCl (Bupropion Hcl Xl 300 Mg Tab.Er.24h) 300 mg PO DAILY [facility] Last Admin: 07/06/22 08:38 Dose: 300 mg Clonidine HCl (Clonidine Hcl 0.1 Mg Tablet) 0.1 mg PO Q4H PRN; Protocol PRN Reason: Anxiety Last Admin: 07/06/22 11:53 Dose: 0.1 mg Hydroxyzine HCl (Hydroxyzine Hcl 50 Mg Tablet) 50 mg PO TID PRN PRN Reason: Anxiety Last Admin: 07/05/22 23:15 Dose: 50 mg Magnesium Hydroxide (Milk Of Magnesia 30 Ml Oral.Susp) 30 ml PO DAILY PRN PRN Reason: Constipation Melatonin (Melatonin 3 Mg Tablet) 9 mg PO BEDTIME PRN PRN Reason: Sleep Mirtazapine (Mirtazapine 7.5 Mg Tablet) 7.5 mg PO BEDTIME [facility] Last Admin: 07/05/22 21:51 Dose: 7.5 mg Multivitamins/Vitamin C (Multivitamin Tablet) 1 tab PO DAILY [facility] Last Admin: 07/06/22 08:38 Dose: 1 tab Thiamine HCl (Thiamine Hcl 100 Mg Tablet) 100 mg PO DAILY [facility] Last Admin: 07/06/22 08:38 Dose: 100 mg Allergies Allergies Allergy/AdvReac Type Severity Reaction Status Date / Time No Known Allergies Allergy Verified 11/02/20 13:05 [No Known Allergies*] Assessment & Plan Assessment & Plan (1) MDD (major depressive disorder), recurrent episode, moderate: Status: Acute Code(s): F33.1 - Major depressive disorder, recurrent, moderate (2) PTSD (post-traumatic stress disorder): Status: Acute Code(s): F43.10 - Post-traumatic stress disorder, unspecified (3) Cocaine use disorder: Status: Acute Code(s): F14.10 - Cocaine abuse, uncomplicated (4) Opioid use disorder: Status: Acute Code(s): F11.90 - Opioid use, unspecified, uncomplicated Plan Patient is a 42-year-old male with history of depression, substance abuse who self presents for suicidal ideation with vague plans in the face of substance abuse with cocaine, heroin. Reported auditory hallucinations telling himself to harm himself or others. In the ED patient said that SI had resolved. -reviewed ED note; reviewed psych admission and discharge note from January 2022 where patient's Wellbutrin was increased. -history of poor follow-up; AH likely mood congruent, but will inquire further once patient is willing to engage. Patient is also likely withdrawing from cocaine and possibly opiates. 07/02 patient denies he is in any withdrawal. Says depressed with suicidal ideation. Agrees to get back on Wellbutrin and continuing mirtazapine 07/03 patient remains in bed, isolative and with limited cooperation. He says he still depressed but agrees to titration of Wellbutrin. Not attending to ADLs 07/04 doing a little better; continue current tx plan 07/05 continues to improve; continue current regimen 07/06 continue current regimen; patient wants CSS program so will discuss further with social Work when the return on Thursday Plan: CV Q 15 minute checks Continue Wellbutrin XL 300mg daily Continue mirtazapine 7.5 mg q.h.s. gather collateral Will add medications to help comfort withdrawal. Patient educated on: medication risk/benefits and substance abuse Informed Consent: understands Reason for contiued inpatient stay Substantial Risk for: stable for discharge Time Spent With Patient Time: Total time managing care of this patient today ____ minutes.
[2022-07-06 18:00] VITALS: BP 130/62; PULSE 72; TEMP 37; O2SAT 98
[2022-07-06] MEDS: Mirtazapine 7.5 MG TABLET PO (21:03)
[2022-07-06] MEDS: hydrOXYzine HCL 50 MG TABLET PO (21:03)
[2022-07-07 06:00] VITALS: BP 120/71; PULSE 80; RESP 16; TEMP 36.4; O2SAT 98
[2022-07-07] MEDS: buPROPion HCl XL 300 MG TAB.ER.24H PO (08:32)
[2022-07-07] MEDS: Thiamine HCL 100 MG TABLET PO (08:32)
[2022-07-07] MEDS: Multivitamin TABLET 1 TAB PO (08:32)
[2022-07-07 10:15] VITALS: BP 130/71
[2022-07-07] MEDS: cloNIDine HCL 0.1 MG TABLET PO ×3 (10:17→22:11)
[2022-07-07] MEDS: hydrOXYzine HCL 50 MG TABLET PO ×3 (10:17→22:11)
--- NOTE | 2022-07-07 13:00 | P.PNPSI_ITS ---
Subjective Subjective Date of Service: 07/07/22 Reason For Visit: Suicidal depression/ substance abuse Interim History: Met with patient; discussed in teams Patient talked about how his depression is better and he thinks it probably is due to the medications. He is not sure however if it is due to mirtazapine or Wellbutrin but like to leave it where it is for now. Discussed history of substance abuse and patient would like to get back on Suboxone and then sublicade. Patient talked about struggles with addiction and with mood. Talked about relationship with mother for a bit Going to groups Mental Status Exam Mental Status Exam Narrative: Pt is alert and oriented; behavior is cooperative, calm; patient is not in distress; dressed in hospital attire with adequate hygiene; mood is described as little better and affect congruent, brighter; adequate eye contact; Speech is normal rate, volume and prosody and not pressured;no psychomotor retardation present; thought process is goal directed; Thought content is on depression, getting better; no expressions of delusions or paranoid thinking; intermittent passive SI; no HI; There is no evidence of perceptual disturbance. Patients insight and judgment are impaired but improving Diagnostics Vital Signs (24Hr): Vital Signs - 24 hr 07/06/22 18:00 07/07/22 06:00 07/07/22 10:15 Temperature 98.6 F 97.6 F Pulse Rate 72 80 Respiratory Rate 16 Blood Pressure 130/62 120/71 130/71 Pulse Oximetry 98 98 Oxygen Delivery Method Room Air Room Air BMI result Body Mass Index 24.9 Labs 06/30/22 03:13 07/01/22 08:16 Medications Medications Current Medications Acetaminophen (Acetaminophen 325 Mg Tablet) 650 mg PO Q6H PRN PRN Reason: Headache/Pain Mild Scale (1-3) Al Hydroxide/Mg Hydroxide (Magnesium Hydrox/Alum Hydrox 30 Ml Oral.Susp) 30 ml PO Q6H PRN PRN Reason: Heartburn/Nausea Bupropion HCl (Bupropion Hcl Xl 300 Mg Tab.Er.24h) 300 mg PO DAILY [facility] Last Admin: 07/07/22 08:32 Dose: 300 mg Clonidine HCl (Clonidine Hcl 0.1 Mg Tablet) 0.1 mg PO Q4H PRN; Protocol PRN Reason: Anxiety Last Admin: 07/07/22 10:17 Dose: 0.1 mg Hydroxyzine HCl (Hydroxyzine Hcl 50 Mg Tablet) 50 mg PO TID PRN PRN Reason: Anxiety Last Admin: 07/07/22 10:17 Dose: 50 mg Magnesium Hydroxide (Milk Of Magnesia 30 Ml Oral.Susp) 30 ml PO DAILY PRN PRN Reason: Constipation Melatonin (Melatonin 3 Mg Tablet) 9 mg PO BEDTIME PRN PRN Reason: Sleep Mirtazapine (Mirtazapine 7.5 Mg Tablet) 7.5 mg PO BEDTIME [facility] Last Admin: 07/06/22 21:03 Dose: 7.5 mg Multivitamins/Vitamin C (Multivitamin Tablet) 1 tab PO DAILY [facility] Last Admin: 07/07/22 08:32 Dose: 1 tab Thiamine HCl (Thiamine Hcl 100 Mg Tablet) 100 mg PO DAILY [facility] Last Admin: 07/07/22 08:32 Dose: 100 mg Allergies Allergies Allergy/AdvReac Type Severity Reaction Status Date / Time No Known Allergies Allergy Verified 11/02/20 13:05 [No Known Allergies*] Assessment & Plan Assessment & Plan (1) MDD (major depressive disorder), recurrent episode, moderate: Status: Acute Code(s): F33.1 - Major depressive disorder, recurrent, moderate (2) PTSD (post-traumatic stress disorder): Status: Acute Code(s): F43.10 - Post-traumatic stress disorder, unspecified (3) Cocaine use disorder: Status: Acute Code(s): F14.10 - Cocaine abuse, uncomplicated (4) Opioid use disorder: Status: Acute Code(s): F11.90 - Opioid use, unspecified, uncomplicated Plan Patient is a 42-year-old male with history of depression, substance abuse who self presents for suicidal ideation with vague plans in the face of substance abuse with cocaine, heroin. Reported auditory hallucinations telling himself to harm himself or others. In the ED patient said that SI had resolved. -reviewed ED note; reviewed psych admission and discharge note from January 2022 where patient's Wellbutrin was increased. -history of poor follow-up; AH likely mood congruent, but will inquire further once patient is willing to engage. Patient is also likely withdrawing from cocaine and possibly opiates. 07/02 patient denies he is in any withdrawal. Says depressed with suicidal ideation. Agrees to get back on Wellbutrin and continuing mirtazapine 2/9 patient remains in bed, isolative and with limited cooperation. He says he still depressed but agrees to titration of Wellbutrin. Not attending to ADLs 07/04 doing a little better; continue current tx plan 07/05 continues to improve; continue current regimen 07/06 continue current regimen; patient wants CSS program so will discuss further with social Work when the return on Friday 07/07 doing a little better, mood is improved wants keep medications where they are; wants to start Suboxone. Like help getting back on subliCade Plan: CV Q 15 minute checks Start Suboxone and will titrate to 8/2 mg b.i.d. which is his past dose Continue Wellbutrin XL 300mg daily Continue mirtazapine 7.5 mg q.h.s. gather collateral Will add medications to help comfort withdrawal. Patient educated on: diagnosis, medication risk/benefits and substance abuse Informed Consent: understands Reason for contiued inpatient stay Substantial Risk for: stable for discharge Time Spent With Patient Time: Total time managing care of this patient today ____ minutes.
[2022-07-07 15:22] VITALS: BP 121/71
[2022-07-07] MEDS: Buprenorphine/Naloxone 4/1 mg FILM 1 FILM SUBLINGUAL (18:49)
[2022-07-07 19:45] VITALS: BP 136/74; PULSE 74; TEMP 36.7; O2SAT 99
[2022-07-07] MEDS: Mirtazapine 7.5 MG TABLET PO (22:03)
[2022-07-08 06:00] VITALS: BP 115/66; PULSE 64; RESP 16
[2022-07-08] MEDS: Multivitamin TABLET 1 TAB PO (08:28)
[2022-07-08] MEDS: Buprenorphine/Naloxone 8/2 mg FILM 1 FILM SUBLINGUAL ×2 (08:28→16:43)
[2022-07-08] MEDS: Thiamine HCL 100 MG TABLET PO (08:28)
[2022-07-08] MEDS: buPROPion HCl XL 300 MG TAB.ER.24H PO (08:28)
[2022-07-08 09:56] VITALS: BP 124/86; PULSE 88
[2022-07-08] MEDS: cloNIDine HCL 0.1 MG TABLET PO ×2 (09:56→15:46)
[2022-07-08] MEDS: hydrOXYzine HCL 50 MG TABLET PO ×3 (09:56→21:01)
--- NOTE | 2022-07-08 14:21 | P.PNPSI_ITS ---
Subjective Subjective Date of Service: 07/08/22 Reason For Visit: Suicidal depression/ substance abuse Interim History: Met with patient; discussed in teams Patient calling for application to programs. Hoping to get into 1. Feels that mood is overall better and is grateful for medication. Suboxone is helping. Patient attending groups. In good behavioral and impulse control and appr opriate with peers and staff Mental Status Exam Mental Status Exam Narrative: Pt is alert and oriented; behavior is cooperative, calm; patient is not in distress; dressed in hospital attire with adequate hygiene; mood is described as better and affect congruent, brighter; adequate eye contact; Speech is normal rate, volume and prosody and not pressured;no psychomotor retardation p resent; thought process is goal directed; Thought content is on depression, getting better; no expressions of delusions or paranoid thinking; intermittent passive SI; no HI; There is no evidence of perceptual disturbance. Patients insight and judgment are fair Diagnostics Vital Signs (24Hr): Vital Signs - 24 hr 07/07/22 15:22 07/07/22 19:45 07/08/22 06:00 Temperature 98.0 F Pulse Rate 74 64 Respiratory Rate 16 Blood Pressure 121/71 136/74 115/66 Pulse Oximetry 99 Oxygen Delivery Method Room Air 07/08/22 09:56 Temperature Pulse Rate 88 Respiratory Rate Blood Pressure 124/86 Pulse Oximetry Oxygen Delivery Method BMI result Body Mass Index 24.9 Labs 06/30/22 03:13 07/01/22 08:16 Medications Medications Current Medications Acetaminophen (Acetaminophen 325 Mg Tablet) 650 mg PO Q6H PRN PRN Reason: Headache/Pain Mild Scale (1-3) Al Hydroxide/Mg Hydroxide (Magnesium Hydrox/Alum Hydrox 30 Ml Oral.Susp) 30 ml PO Q6H PRN PRN Reason: Heartburn/Nausea Buprenorphine/Naloxone (Buprenorphine/Naloxone 8/2 Mg Film) 1 film SUBLINGUAL BID@0900,1700 [facility] Last Admin: 07/08/22 08:28 Dose: 1 film Bupropion HCl (Bupropion Hcl Xl 300 Mg Tab.Er.24h) 300 mg PO DAILY [facility] Last Admin: 07/08/22 08:28 Dose: 300 mg Clonidine HCl (Clonidine Hcl 0.1 Mg Tablet) 0.1 mg PO Q4H PRN; Protocol PRN Reason: Anxiety Last Admin: 07/08/22 09:56 Dose: 0.1 mg Hydroxyzine HCl (Hydroxyzine Hcl 50 Mg Tablet) 50 mg PO TID PRN PRN Reason: Anxiety Last Admin: 07/08/22 09:56 Dose: 50 mg Magnesium Hydroxide (Milk Of Magnesia 30 Ml Oral.Susp) 30 ml PO DAILY PRN PRN Reason: Constipation Melatonin (Melatonin 3 Mg Tablet) 9 mg PO BEDTIME PRN PRN Reason: Sleep Mirtazapine (Mirtazapine 7.5 Mg Tablet) 7.5 mg PO BEDTIME [facility] Last Admin: 07/07/22 22:03 Dose: 7.5 mg Multivitamins/Vitamin C (Multivitamin Tablet) 1 tab PO DAILY [facility] Last Admin: 07/08/22 08:28 Dose: 1 tab Thiamine HCl (Thiamine Hcl 100 Mg Tablet) 100 mg PO DAILY [facility] Last Admin: 07/08/22 08:28 Dose: 100 mg Allergies Allergies Allergy/AdvReac Type Severity Reaction Status Date / Time No Known Allergies Allergy Verified 11/02/20 13:05 [No Known Allergies*] Assessment & Plan Assessment & Plan (1) MDD (major depressive disorder), recurrent episode, moderate: Status: Acute Code(s): F33.1 - Major depressive disorder, recurrent, moderate (2) PTSD (post-traumatic stress disorder): Status: Acute Code(s): F43.10 - Post-traumatic stress disorder, unspecified (3) Cocaine use disorder: Status: Acute Code(s): F14.10 - Cocaine abuse, uncomplicated (4) Opioid use disorder: Status: Acute Code(s): F11.90 - Opioid use, unspecified, uncomplicated Plan Patient is a 42-year-old male with history of depression, substance abuse who self presents for suicidal ideation with vague plans in the face of substance abuse with cocaine, heroin. Reported auditory hallucinations telling himself to harm himself or others. In the ED patient said that SI had resolved. -reviewed ED note; reviewed psych admission and discharge note from January 2022 where patient's Wellbutrin was increased. -history of poor follow-up; AH likely mood congruent, but will inquire further once patient is willing to engage. Patient is also likely withdrawing from cocaine and possibly opiates. 07/02 patient denies he is in any withdrawal. Says depressed with suicidal ideation. Agrees to get back on Wellbutrin and continuing mirtazapine 07/03 patient remains in bed, isolative and with limited cooperation. He says he still depressed but agrees to titration of Wellbutrin. Not attending to ADLs 07/04 doing a little better; continue current tx plan 07/05 continues to improve; continue current regimen 07/06 continue current regimen; patient wants CSS program so will discuss further with social Work when the return on Friday 07/07 doing a little better, mood is improved wants keep medications where they are; wants to start Suboxone. Like help getting back on subliCade 07/08 mood remains improved; focused on aftercare wanting to stay sober Plan: CV Q 15 minute checks Continue Suboxone 8/2 mg b.i.d. Continue Wellbutrin XL 300mg daily Continue mirtazapine 7.5 mg q.h.s. gather collateral Will add medications to help comfort withdrawal. Patient educated on: diagnosis and medication risk/benefits Informed Consent: understands Reason for contiued inpatient stay Substantial Risk for: stable for discharge Time Spent With Patient Time: Total time managing care of this patient today ____ minutes.
[2022-07-08 15:48] VITALS: BP 126/63; PULSE 79; TEMP 36.2; O2SAT 98
[2022-07-08] MEDS: Mirtazapine 7.5 MG TABLET PO (20:59)
[2022-07-09] MEDS: Thiamine HCL 100 MG TABLET PO (09:10)
[2022-07-09] MEDS: buPROPion HCl XL 300 MG TAB.ER.24H PO (09:10)
[2022-07-09] MEDS: Multivitamin TABLET 1 TAB PO (09:10)
[2022-07-09 09:31] VITALS: BP 132/80; PULSE 73; RESP 16; TEMP 36.2; O2SAT 99
[2022-07-09] MEDS: Buprenorphine/Naloxone 8/2 mg FILM 1 FILM SUBLINGUAL ×2 (09:54→16:13)
--- NOTE | 2022-07-09 10:38 | P.PNPSI_ITS ---
Subjective Subjective Date of Service: 07/09/22 Reason For Visit: Suicidal depression/ substance abuse Interim History: met w/ patient; discussed in team pt said anxious today since worried about getting into program, but says after talking w/ SW feels better; he says overall, could use help w/ anxiety and agrees to increasing dose of Mirtazapine. Otherwise, feels better overall Mental Status Exam Mental Status Exam Narrative: Pt is alert and oriented; behavior is cooperative, calm; patient is not in distress; dressed in hospital attire with adequate hygiene; mood is described as ok and affect congruent, brighter; adequate eye contact; Speech is normal rate, volume and prosody and not pressured;no psychomotor retardation present; thought process is goal directed; Thought content is on depression, getting better; no expressions of delusions or paranoid thinking; intermittent passive SI; no HI; There is no evidence of perceptual disturbance. Patients insight and judgment are fair Diagnostics Vital Signs (24Hr): Vital Signs - 24 hr 07/08/22 15:48 07/09/22 09:31 Temperature 97.2 F 97.1 F Pulse Rate 79 73 Respiratory Rate 16 Blood Pressure 126/63 132/80 Pulse Oximetry 98 99 Oxygen Delivery Method Room Air Room Air BMI result Body Mass Index 24.9 Labs 06/30/22 03:13 07/01/22 08:16 Medications Medications Current Medications Acetaminophen (Acetaminophen 325 Mg Tablet) 650 mg PO Q6H PRN PRN Reason: Headache/Pain Mild Scale (1-3) Al Hydroxide/Mg Hydroxide (Magnesium Hydrox/Alum Hydrox 30 Ml Oral.Susp) 30 ml PO Q6H PRN PRN Reason: Heartburn/Nausea Buprenorphine/Naloxone (Buprenorphine/Naloxone 8/2 Mg Film) 1 film SUBLINGUAL BID@0900,1700 [facility] Last Admin: 07/09/22 09:54 Dose: 1 film Bupropion HCl (Bupropion Hcl Xl 300 Mg Tab.Er.24h) 300 mg PO DAILY [facility] Last Admin: 07/09/22 09:10 Dose: 300 mg Clonidine HCl (Clonidine Hcl 0.1 Mg Tablet) 0.1 mg PO Q4H PRN; Protocol PRN Reason: Anxiety Last Admin: 07/08/22 15:46 Dose: 0.1 mg Hydroxyzine HCl (Hydroxyzine Hcl 50 Mg Tablet) 50 mg PO TID PRN PRN Reason: Anxiety Last Admin: 07/08/22 21:01 Dose: 50 mg Magnesium Hydroxide (Milk Of Magnesia 30 Ml Oral.Susp) 30 ml PO DAILY PRN PRN Reason: Constipation Melatonin (Melatonin 3 Mg Tablet) 9 mg PO BEDTIME PRN PRN Reason: Sleep Mirtazapine (Mirtazapine 7.5 Mg Tablet) 7.5 mg PO BEDTIME [facility] Last Admin: 07/08/22 20:59 Dose: 7.5 mg Multivitamins/Vitamin C (Multivitamin Tablet) 1 tab PO DAILY [facility] Last Admin: 07/09/22 09:10 Dose: 1 tab Thiamine HCl (Thiamine Hcl 100 Mg Tablet) 100 mg PO DAILY [facility] Last Admin: 07/09/22 09:10 Dose: 100 mg Allergies Allergies Allergy/AdvReac Type Severity Reaction Status Date / Time No Known Allergies Allergy Verified 11/02/20 13:05 [No Known Allergies*] Assessment & Plan Assessment & Plan (1) MDD (major depressive disorder), recurrent episode, moderate: Status: Acute Code(s): F33.1 - Major depressive disorder, recurrent, moderate (2) PTSD (post-traumatic stress disorder): Status: Acute Code(s): F43.10 - Post-traumatic stress disorder, unspecified (3) Cocaine use disorder: Status: Acute Code(s): F14.10 - Cocaine abuse, uncomplicated (4) Opioid use disorder: Status: Acute Code(s): F11.90 - Opioid use, unspecified, uncomplicated Plan Patient is a 42-year-old male with history of depression, substance abuse who self presents for suicidal ideation with vague plans in the face of substance abuse with cocaine, heroin. Reported auditory hallucinations telling himself to harm himself or others. In the ED patient said that SI had resolved. -reviewed ED note; reviewed psych admission and discharge note from January 2022 where patient's Wellbutrin was increased. -history of poor follow-up; AH likely mood congruent, but will inquire further once patient is willing to engage. Patient is also likely withdrawing from cocaine and possibly opiates. 07/02 patient denies he is in any withdrawal. Says depressed with suicidal ideation. Agrees to get back on Wellbutrin and continuing mirtazapine 07/03 patient remains in bed, isolative and with limited cooperation. He says he still depressed but agrees to titration of Wellbutrin. Not attending to ADLs 07/04 doing a little better; continue current tx plan 07/05 continues to improve; continue current regimen 07/06 continue current regimen; patient wants CSS program so will discuss further with social Work when the return on Friday 07/07 doing a little better, mood is improved wants keep medications where they are; wants to start Suboxone. Like help getting back on subliCade 07/08 mood remains improved; focused on aftercare wanting to stay sober Plan: CV Q 15 minute checks Continue Suboxone 8/2 mg b.i.d. Continue Wellbutrin XL 300mg daily INcrease to mirtazapine 15 mg q.h.s. Patient educated on: diagnosis and medication risk/benefits Informed Consent: understands Reason for contiued inpatient stay Substantial Risk for: stable for discharge Time Spent With Patient Time: Total time managing care of this patient today ____ minutes.
[2022-07-09 12:22] VITALS: BP 128/75; PULSE 74
[2022-07-09] MEDS: hydrOXYzine HCL 50 MG TABLET PO ×2 (12:24→20:52)
[2022-07-09] MEDS: cloNIDine HCL 0.1 MG TABLET PO ×3 (12:24→20:52)
[2022-07-09 16:25] VITALS: BP 130/62; PULSE 75; RESP 16; TEMP 36.6; O2SAT 98
[2022-07-09] MEDS: Mirtazapine 15 MG TABLET PO (19:39)
[2022-07-10 07:00] VITALS: BMI 25.7
[2022-07-10] MEDS: Multivitamin TABLET 1 TAB PO (08:23)
[2022-07-10] MEDS: Thiamine HCL 100 MG TABLET PO (08:23)
[2022-07-10] MEDS: Buprenorphine/Naloxone 8/2 mg FILM 1 FILM SUBLINGUAL ×2 (08:23→17:29)
[2022-07-10] MEDS: buPROPion HCl XL 300 MG TAB.ER.24H PO (08:24)
[2022-07-10 08:26] VITALS: BP 124/58; PULSE 79; RESP 18; TEMP 36.2; O2SAT 98
--- NOTE | 2022-07-10 10:29 | HO.PSYCHPN ---
Subjective Subjective Date of Service: 07/10/22 Reason For Visit: Suicidal depression/ substance abuse Interim History: met w/ patient; discussed in teams sleeping well; feels mood remains better; discussed relationship w/ his mother with whom he's close; he would like to return there but says the household is a depressing atmosphere; his brother lives there too and pt says he is quite a problem; pt is convinced that if he returns home, he'll quickly slide back into depression. Because of this, rather go to a penitentiary than return home. Mental Status Exam Mental Status Exam Narrative: Pt is alert and oriented; behavior is cooperative, calm; patient is not in distress; dressed in hospital attire with adequate hygiene; mood is described as ok and affect congruent, brighter; adequate eye contact; Speech is normal rate, volume and prosody and not pressured;no psychomotor retardation present; thought process is goal directed; Thought content is on depression, getting better; no expressions of delusions or paranoid thinking; intermittent passive SI; no HI; There is no evidence of perceptual disturbance. Patients insight and judgment are fair Diagnostics Vital Signs (24Hr): Vital Signs - 24 hr 07/09/22 12:22 07/09/22 16:25 07/10/22 08:26 Temperature 98 F 97.2 F Pulse Rate 74 75 79 Respiratory Rate 16 18 Blood Pressure 128/75 130/62 124/58 L Pulse Oximetry 98 98 Oxygen Delivery Method Room Air Room Air BMI result Body Mass Index 25.7 Labs 06/30/22 03:13 07/01/22 08:16 Medications Medications Current Medications Acetaminophen (Acetaminophen 325 Mg Tablet) 650 mg PO Q6H PRN PRN Reason: Headache/Pain Mild Scale (1-3) Al Hydroxide/Mg Hydroxide (Magnesium Hydrox/Alum Hydrox 30 Ml Oral.Susp) 30 ml PO Q6H PRN PRN Reason: Heartburn/Nausea Buprenorphine/Naloxone (Buprenorphine/Naloxone 8/2 Mg Film) 1 film SUBLINGUAL BID@0900,1700 [facility] Last Admin: 07/10/22 08:23 Dose: 1 film Bupropion HCl (Bupropion Hcl Xl 300 Mg Tab.Er.24h) 300 mg PO DAILY [facility] Last Admin: 07/10/22 08:24 Dose: 300 mg Clonidine HCl (Clonidine Hcl 0.1 Mg Tablet) 0.1 mg PO Q4H PRN; Protocol PRN Reason: Anxiety Last Admin: 07/09/22 20:52 Dose: 0.1 mg Hydroxyzine HCl (Hydroxyzine Hcl 50 Mg Tablet) 50 mg PO TID PRN PRN Reason: Anxiety Last Admin: 07/09/22 20:52 Dose: 50 mg Magnesium Hydroxide (Milk Of Magnesia 30 Ml Oral.Susp) 30 ml PO DAILY PRN PRN Reason: Constipation Melatonin (Melatonin 3 Mg Tablet) 9 mg PO BEDTIME PRN PRN Reason: Sleep Mirtazapine (Mirtazapine 15 Mg Tablet) 15 mg PO BEDTIME [facility] Last Admin: 07/09/22 19:39 Dose: 15 mg Multivitamins/Vitamin C (Multivitamin Tablet) 1 tab PO DAILY [facility] Last Admin: 07/10/22 08:23 Dose: 1 tab Thiamine HCl (Thiamine Hcl 100 Mg Tablet) 100 mg PO DAILY [facility] Last Admin: 07/10/22 08:23 Dose: 100 mg Allergies Allergies Allergy/AdvReac Type Severity Reaction Status Date / Time No Known Allergies Allergy Verified 11/02/20 13:05 [No Known Allergies*] Assessment & Plan Assessment & Plan (1) MDD (major depressive disorder), recurrent episode, moderate: Status: Acute Code(s): F33.1 - Major depressive disorder, recurrent, moderate (2) PTSD (post-traumatic stress disorder): Status: Acute Code(s): F43.10 - Post-traumatic stress disorder, unspecified (3) Cocaine use disorder: Status: Acute Code(s): F14.10 - Cocaine abuse, uncomplicated (4) Opioid use disorder: Status: Acute Code(s): F11.90 - Opioid use, unspecified, uncomplicated Plan Patient is a 42-year-old male with history of depression, substance abuse who self presents for suicidal ideation with vague plans in the face of substance abuse with cocaine, heroin. Reported auditory hallucinations telling himself to harm himself or others. In the ED patient said that SI had resolved. -reviewed ED note; reviewed psych admission and discharge note from January 2022 where patient's Wellbutrin was increased. -history of poor follow-up; AH likely mood congruent, but will inquire further once patient is willing to engage. Patient is also likely withdrawing from cocaine and possibly opiates. 07/02 patient denies he is in any withdrawal. Says depressed with suicidal ideation. Agrees to get back on Wellbutrin and continuing mirtazapine 07/03 patient remains in bed, isolative and with limited cooperation. He says he still depressed but agrees to titration of Wellbutrin. Not attending to ADLs 07/04 doing a little better; continue current tx plan 07/05 continues to improve; continue current regimen 07/06 continue current regimen; patient wants [facility] program so will discuss further with social Work when the return on Friday 07/07 doing a little better, mood is improved wants keep medications where they are; wants to start Suboxone. Like help getting back on subliCade 07/08 mood remains improved; focused on aftercare wanting to stay sober Plan: CV Q 15 minute checks Continue Suboxone 8/2 mg b.i.d. Continue Wellbutrin XL 300mg daily INcrease to mirtazapine 15 mg q.h.s. Patient educated on: diagnosis and therapeutic strategies Informed Consent: understands Reason for contiued inpatient stay Substantial Risk for: stable for discharge Time Spent With Patient Time: Total time managing care of this patient today ____ minutes.
[2022-07-10] MEDS: hydrOXYzine HCL 50 MG TABLET PO ×3 (11:17→21:15)
[2022-07-10] MEDS: cloNIDine HCL 0.1 MG TABLET PO ×2 (11:17→17:29)
[2022-07-10 11:18] VITALS: BP 125/73; PULSE 77
[2022-07-10 18:00] VITALS: BP 116/61; PULSE 67; RESP 18; TEMP 37.1; O2SAT 100
[2022-07-10] MEDS: Melatonin 3 MG TABLET 9 MG PO (21:13)
[2022-07-10] MEDS: Mirtazapine 15 MG TABLET PO (21:15)
[2022-07-11] MEDS: Buprenorphine/Naloxone 8/2 mg FILM 1 FILM SUBLINGUAL ×2 (09:21→16:47)
[2022-07-11] MEDS: Multivitamin TABLET 1 TAB PO (09:21)
[2022-07-11] MEDS: Thiamine HCL 100 MG TABLET PO (09:21)
[2022-07-11] MEDS: buPROPion HCl XL 300 MG TAB.ER.24H PO (09:21)
[2022-07-11 09:38] VITALS: BP 122/70; PULSE 95; RESP 16; TEMP 36.8; O2SAT 99
[2022-07-11] MEDS: hydrOXYzine HCL 50 MG TABLET PO ×3 (11:14→20:59)
[2022-07-11] MEDS: cloNIDine HCL 0.1 MG TABLET PO ×3 (11:14→20:59)
[2022-07-11 14:48] LABS: COVID-19 Test Negative (Negative); IDNOW Serial# BCCEAD1C
[2022-07-11 16:48] VITALS: BP 116/66; PULSE 82
--- NOTE | 2022-07-11 17:51 | HO.PSYCHPN ---
Subjective Subjective Date of Service: 07/11/22 Reason For Visit: Suicidal depression/ substance abuse Interim History: Met with patient; discussed in teams Patient reports he is continuing to do well. No problems, sleeping and eating well medications working. Patient got accepted to [facility] program and plans to discharge tomorrow Mental Status Exam Mental Status Exam Narrative: Pt is alert and oriented; behavior is cooperative, calm; patient is not in distress; dressed in hospital attire with adequate hygiene; mood is described as good and affect congruent, brighter; adequate eye contact; Speech is normal rate, volume and prosody and not pressured;no psychomotor retardation present; thought process is goal directed; Thought content is on depression, getting better; no expressions of delusions or paranoid thinking; intermittent passive SI; no HI; There is no evidence of perceptual disturbance. Patients insight and judgment are fair Diagnostics Vital Signs (24Hr): Vital Signs - 24 hr 07/10/22 18:00 07/11/22 09:38 07/11/22 16:48 Temperature 98.8 F 98.2 F Pulse Rate 67 95 82 Respiratory Rate 18 16 Blood Pressure 116/61 122/70 116/66 Pulse Oximetry 100 99 Oxygen Delivery Method Room Air Room Air BMI result Body Mass Index 25.7 Labs 06/30/22 03:13 07/01/22 08:16 Labs: Laboratory Results - last 48 hr 07/11/22 07/11/22 13:38 14:22 COVID-19 ([facility]) Cancelled Negative COVID-19 Clin Com Cancelled See Note Medications Medications Current Medications Acetaminophen (Acetaminophen 325 Mg Tablet) 650 mg PO Q6H PRN PRN Reason: Headache/Pain Mild Scale (1-3) Al Hydroxide/Mg Hydroxide (Magnesium Hydrox/Alum Hydrox 30 Ml Oral.Susp) 30 ml PO Q6H PRN PRN Reason: Heartburn/Nausea Buprenorphine/Naloxone (Buprenorphine/Naloxone 8/2 Mg Film) 1 film SUBLINGUAL BID@0900,1700 [facility] Last Admin: 07/11/22 16:47 Dose: 1 film Bupropion HCl (Bupropion Hcl Xl 300 Mg Tab.Er.24h) 300 mg PO DAILY [facility] Last Admin: 07/11/22 09:21 Dose: 300 mg Clonidine HCl (Clonidine Hcl 0.1 Mg Tablet) 0.1 mg PO Q4H PRN; Protocol PRN Reason: Anxiety Last Admin: 07/11/22 16:47 Dose: 0.1 mg Hydroxyzine HCl (Hydroxyzine Hcl 50 Mg Tablet) 50 mg PO TID PRN PRN Reason: Anxiety Last Admin: 07/11/22 16:47 Dose: 50 mg Magnesium Hydroxide (Milk Of Magnesia 30 Ml Oral.Susp) 30 ml PO DAILY PRN PRN Reason: Constipation Melatonin (Melatonin 3 Mg Tablet) 9 mg PO BEDTIME PRN PRN Reason: Sleep Last Admin: 07/10/22 21:13 Dose: 9 mg Mirtazapine (Mirtazapine 15 Mg Tablet) 15 mg PO BEDTIME [facility] Last Admin: 07/10/22 21:15 Dose: 15 mg Multivitamins/Vitamin C (Multivitamin Tablet) 1 tab PO DAILY [facility] Last Admin: 07/11/22 09:21 Dose: 1 tab Naloxone HCl (Naloxone Hcl Nasal Take Home 4 Mg [place]) 4 mg NOSTRILALT ONCE ONE Stop: 07/12/22 09:01 Sodium Biphosphate/Sodium Phosphate (Sodium Phosphate,Cherry-Dibasic 133 Ml Enema) 133 ml GA ONCE PRN PRN Reason: constipation Thiamine HCl (Thiamine Hcl 100 Mg Tablet) 100 mg PO DAILY [facility] Last Admin: 07/11/22 09:21 Dose: 100 mg Allergies Allergies Allergy/AdvReac Type Severity Reaction Status Date / Time No Known Allergies Allergy Verified 11/02/20 13:05 [No Known Allergies*] Assessment & Plan Assessment & Plan (1) MDD (major depressive disorder), recurrent episode, moderate: Status: Acute Code(s): F33.1 - Major depressive disorder, recurrent, moderate (2) PTSD (post-traumatic stress disorder): Status: Acute Code(s): F43.10 - Post-traumatic stress disorder, unspecified (3) Cocaine use disorder: Status: Acute Code(s): F14.10 - Cocaine abuse, uncomplicated (4) Opioid use disorder: Status: Acute Code(s): F11.90 - Opioid use, unspecified, uncomplicated Plan Patient is a 42-year-old male with history of depression, substance abuse who self presents for suicidal ideation with vague plans in the face of substance abuse with cocaine, heroin. Reported auditory hallucinations telling himself to harm himself or others. In the ED patient said that SI had resolved. -reviewed ED note; reviewed psych admission and discharge note from January 2022 where patient's Wellbutrin was increased. -history of poor follow-up; AH likely mood congruent, but will inquire further once patient is willing to engage. Patient is also likely withdrawing from cocaine and possibly opiates. 07/02 patient denies he is in any withdrawal. Says depressed with suicidal ideation. Agrees to get back on Wellbutrin and continuing mirtazapine 07/03 patient remains in bed, isolative and with limited cooperation. He says he still depressed but agrees to titration of Wellbutrin. Not attending to ADLs 07/04 doing a little better; continue current tx plan 07/05 continues to improve; continue current regimen 07/06 continue current regimen; patient wants [facility] program so will discuss further with social Work when the return on Friday 07/07 doing a little better, mood is improved wants keep medications where they are; wants to start Suboxone. Like help getting back on subliCade 07/08 mood remains improved; focused on aftercare wanting to stay sober 07/11 patient remains in good mood, feels medications are working, depression is gone, no SI; feels anxiety is well treated using PRNs as needed. Patient has remained in good behavioral and impulse control throughout his stay on the unit. He has been accepted to a [facility] program for post care substance abuse treatment. Patient is discharging to a supportive environment. He is not in imminent risk for harm to self or others and he is appropriate to continue treatment in the community. Plan: CV Q 15 minute checks Continue Suboxone 8/2 mg b.i.d. Continue Wellbutrin XL 300mg daily INcrease to mirtazapine 15 mg q.h.s. Reason for contiued inpatient stay Substantial Risk for: stable for discharge Time Spent With Patient Time: Total time managing care of this patient today ____ minutes.
--- NOTE | 2022-07-11 17:54 | P.DS_ITS ---
DS: Providers Provider Date of Service: 07/12/22 Date of admission: 06/30/22 19:33 Date of discharge: 07/12/22 Primary care physician: [facility] Attending physician on admission: Misael Basurto Attending physician on discharge: Misael Basurto DS: Diagnosis Discharge Diagnosis (1) MDD (major depressive disorder), recurrent episode, moderate: Status: Acute (2) PTSD (post-traumatic stress disorder): Status: Acute (3) Cocaine use disorder: Status: Acute (4) Opioid use disorder: Status: Acute DS: Medications Discharge Medications Home Medications: Previous Rx's Medication Instructions Recorded acetaminophen 325 mg tablet 650 mg PO Q6H PRN Headache/Pain 07/11/22 Mild Scale (1-3) #0 tabs aluminum-magnesium hydroxide 200 30 ml PO Q6H PRN Heartburn/Nausea 07/11/22 mg-200 mg/5 mL oral suspension #0 mL (MAG-AL) buprenorphine 8 mg-naloxone 2 mg 1 film sublingual BID@0900,1700 30 07/11/22 sublingual film (Suboxone) days #60 ea bupropion HCl 300 mg 24 hr tablet, 300 mg PO DAILY 30 days #30 tabs 07/11/22 extended release clonidine HCl 0.1 mg tablet 0.1 mg PO Q4H PRN anxiety 30 days 07/11/22 #90 tabs hydroxyzine pamoate 50 mg capsule 50 mg PO TID PRN Anxiety 30 days 07/11/22 #90 caps magnesium hydroxide 400 mg/5 mL 30 ml PO DAILY PRN Constipation #0 07/11/22 oral suspension (Milk of Magnesia) mL melatonin 3 mg tablet 9 mg PO BEDTIME PRN Sleep 30 days 07/11/22 #90 tabs mirtazapine 15 mg tablet 15 mg PO BEDTIME 30 days #30 tabs 07/11/22 Data Data Completed and Pending Completed studies during hospitalization [Text1]: 07/11/22 07/11/22 13:38 14:22 COVID-19 ([facility]) Cancelled Negative COVID-19 Clin Com Cancelled See Note DS: Summary Hospital Course Hospital Course: Patient is a 42-year-old male with history of depression, substance abuse who self presents for suicidal ideation with vague plans in the face of substance abuse with cocaine, heroin. Reported auditory hallucinations telling himself to harm himself or others. In the ED patient said that SI had resolved. -reviewed ED note; reviewed psych admission and discharge note from January 2022 where patient's Wellbutrin was increased. -history of poor follow-up; AH likely mood congruent, but will inquire further once patient is willing to engage. Patient is also likely withdrawing from cocaine and possibly opiates. 07/02 patient denies he is in any withdrawal. Says depressed with suicidal ideation. Agrees to get back on Wellbutrin and continuing mirtazapine 07/03 patient remains in bed, isolative and with limited cooperation. He says he still depressed but agrees to titration of Wellbutrin. Not attending to ADLs 07/04 doing a little better; continue current tx plan 07/05 continues to improve; continue current regimen 07/06 continue current regimen; patient wants [facility] program so will discuss further with social Work when the return on Friday 07/07 doing a little better, mood is improved wants keep medications where they are; wants to start Suboxone and started; eventually wants to get back on Sublicade 07/08 mood remains improved; focused on aftercare wanting to stay sober 07/11 patient remains in good mood, feels medications are working, depression is gone, no SI; feels anxiety is well treated using PRNs as needed. Patient has remained in good behavioral and impulse control throughout his stay on the unit. He has been accepted to a [facility] program for post care substance abuse treatment. Patient is discharging to a supportive environment. He is not in imminent risk for harm to self or others and he is appropriate to continue treatment in the community. Plan: CV Q 15 minute checks Continue Suboxone 8/2 mg b.i.d. Continue Wellbutrin XL 300mg daily INcrease to mirtazapine 15 mg q.h.s. Time spent discussing smoking cessation with patient: 3 to 10 minutes Status at Discharge Functional status at discharge: independent ambulation Overall status at discharge: patient is back to baseline Time Spent with Patient Time attestation: Total time managing care of this patient today ____ minutes. Time spent: Less than 30 minutes Discharge Plan Discharge Anticipated Discharge Date/Time: 07/12/22 11:00 Patient Disposition: [facility] Discharge Diagnosis: MDD, recurrent, moderate in full remission Referrals: [facility] [Primary Care Provider] - 1 Week Discharge Medications: New bupropion HCl 300 mg Tablet Extended Release 24 Hr 300 mg PO DAILY 30 Days Qty: 30 1RF acetaminophen 325 mg Tablet 650 mg PO Q6H PRN (Reason: Headache/Pain Mild Scale (1-3)) Qty: 0 0RF mirtazapine 15 mg Tablet 15 mg PO BEDTIME 30 Days Qty: 30 1RF magnesium hydroxide [Milk of Magnesia] 400 mg/5 mL Suspension 30 ml PO DAILY PRN (Reason: Constipation) Qty: 0 0RF MAG-AL 200-200 mg/5 mL Suspension 30 ml PO Q6H PRN (Reason: Heartburn/Nausea) Qty: 0 0RF buprenorphine-naloxone [Suboxone] 8-2 mg Film 1 film sublingual BID@0900,1700 30 Days Qty: 60 0RF Continued hydroxyzine pamoate 50 mg Capsule 50 mg PO TID PRN (Reason: Anxiety) 30 Days Qty: 90 1RF melatonin 3 mg Tablet 9 mg PO BEDTIME PRN (Reason: Sleep) 30 Days Qty: 90 1RF Changed clonidine HCl 0.1 mg tablet 0.1 mg PO Q4H PRN (Reason: anxiety) 30 Days Qty: 90 1RF Discontinued bupropion HCl [Wellbutrin XL] 150 mg Tablet Extended Release 24 Hr 150 mg PO DAILY Discharge Orders: Discharge Order (Routine); Ordered 07/12/22 Ordered By: Misael Basurto Diet: Regular diet Activity on Discharge: As tolerated Stand Alone Forms: Patient Portal Discharge page Care Plan Goals: Maintain mood and safe behaviors Take medications as prescribed Continue to pursue sobriety Practice coping skills Continue with outpatient providers and reach out to them as needed Health Concerns: Mood stability and behaviors Sobriety Plan of Treatment: Follow up with your Psychiatric provider and other outpatient providers regarding above concerns Take medications as prescribed Assessment: Risk assessment at time of discharge:? Patient was interviewed prior to discharge and found to be fully oriented and without any SI or HI. Patient has insight and demonstrates good judgment in terms of wanting to pursue treatment. Patient is not in imminent risk of harm to self or others and has a safety plan that includes presenting to the closest ER or calling 911 if feeling unsafe.? Patient has been observed closely by nursing and unit staff throughout admission; patient has not engaged in any behaviors that suggest dangerousness to self or others and has demonstrated appropriate behaviors and impulse control
[2022-07-11] MEDS: Mirtazapine 15 MG TABLET PO (20:59)
[2022-07-11] MEDS: Melatonin 3 MG TABLET 9 MG PO (20:59)
[2022-07-12] MEDS: buPROPion HCl XL 300 MG TAB.ER.24H PO (08:28)
[2022-07-12] MEDS: Thiamine HCL 100 MG TABLET PO (08:28)
[2022-07-12] MEDS: Buprenorphine/Naloxone 8/2 mg FILM 1 FILM SUBLINGUAL (08:28)
[2022-07-12] MEDS: Multivitamin TABLET 1 TAB PO (08:29)
[2022-07-12] MEDS: Naloxone HCl Nasal TAKE HOME 4 MG SPRAY NOSTRILALT (08:31)
[2022-07-12 08:33] VITALS: BP 105/71; PULSE 73; RESP 16; TEMP 36.6; O2SAT 98
[2022-07-12] MEDS: hydrOXYzine HCL 50 MG TABLET PO (11:23)
[2022-07-12] MEDS: cloNIDine HCL 0.1 MG TABLET PO (11:23)
== END 2022-07-12 11:24 | disposition home or self-care (01) | DRG 751 ==
LOC: HO.ED 18:55 → HO.PM5 19:40
PROVIDERS: Admitting Provider Psychiatry & Neurology Psychiatry; Emergency Provider Emergency Medicine Emergency Medical Services; Visit Provider Psychiatry & Neurology Psychiatry
DX: F33.1 Major depressive disorder, recurrent, moderate (principal); R45.851 Suicidal ideations; F11.20 Opioid dependence, uncomplicated; F43.10 Post-traumatic stress disorder, unspecified; F17.210 Nicotine dependence, cigarettes, uncomplicated; Z71.6 Tobacco abuse counseling; F14.10 Cocaine abuse, uncomplicated; Z20.822 Contact with and (suspected) exposure to COVID-19; Z79.899 Other long term (current) drug therapy
CPT/HCPCS: 36415; 80053; 80061; 80307; 81003; 82077; 82607; 82746; 84439; 84443; 85025; 87635; 93005; 99285; S9485